=== PATIENT | female | born 1965 | race Caucasian/White ===

== ENCOUNTER → 2016-10-29 | Outpatient (CLI) | payer OTHER ==
[~2016-10-29] MED LIST: AMT25 PO; ANAG0.5C6 PO; ASPEC81 PO; FERR-24 PO; IBUP600T44 PO; OXYC-57 PO; SUMA6KIT SC
--- NOTE | 2016-10-29 16:07 | MAMMOGRAPHY REPORT ---
BILATERAL DIGITAL SCREENING MAMMOGRAM TOMOSYNTHESIS WITH CAD: 10/29/2016 CLINICAL HISTORY: Routine screening. Patient has no complaints. TECHNIQUE: Breast tomosynthesis in addition to standard 2D mammography was performed. Current study was also evaluated with a Computer Aided Detection (CAD) system. COMPARISON: Comparison is made to exams dated: 10/24/2015 mammogram, 10/18/2014 mammogram, 10/12/2013 m ammogram, 06/30/2012 mammogram, 06/18/2011 mammogram, and 06/12/2010 mammogram - [facility] nter. BREAST COMPOSITION: There are scattered areas of fibroglandular density in both breasts. FINDINGS: The parenchymal pattern is unchanged. No developing mass, architectural distortion or clus ter of suspicious microcalcifications is seen in either breast. IMPRESSION: ACR BI-RADS CATEGORY 2: BENIGN There is no mammographic evidence of malignancy. A 1 year screening mammogram is recommended. The pa tient will receive written notification of the results. Approximately 10% of breast cancers are not detected with mammography. A negative mammographic report should not delay biopsy if a clinically suggestive mass is present. Junie Cisse M.D. ay/:10/29/2016 15:35:58 [employer]: Rosemary COOLEY(Humberto)(Evita)(BD), [facility] letter sent: Normal 1/2 BI-RADS Code: ACR BI-RADS Category 2: Benign
== END | disposition home or self-care (01) ==
LOC: C.MAMM 08:52
PROVIDERS: ATTEND Obstetrics & Gynecology
DX: Z12.31 Encounter for screening mammogram for malignant neoplasm of breast (principal)

== ENCOUNTER 2022-06-03 09:28 | Inpatient (IN) ==
[2022-06-03] MEDS ORDERED: CLINDAMYCIN/D5W 900 MG/50 ML BAG IV ONE (09:56)
[2022-06-03] MEDS ORDERED: SODIUM CHLORIDE 0.9% 1000ML 1,000 ML IV SCH (10:00)
[2022-06-03] MEDS ORDERED: MoRPHine SULFATE 4 MG/ML 1 ML CARP\\VIAL IV STA (10:03)
[2022-06-03] MEDS ORDERED: ONDANSETRON INJ 2 MG/ML 2 ML VIAL IV STA ×2 (10:03→19:45)
--- NOTE | 2022-06-03 10:06 | Emergency Department Note ---
Impression & Plan Cellulitis of face, Facial swelling, Jaw pain ED Provider Note NAME: NUBIA STARK AGE: 56 SEX: F : 1965 ARRIVES VIA: Walk-In INFORMANT: [Patient] ED PROVIDER(S): [Rito Hawthorne MD] CHIEF COMPLAINT: Facial pain and swelling HISTORY OF PRESENT ILLNESS: The patient is a 56-year-old female who has had around 2 days of left lower jaw pain and facial swelling. She has taken 3 doses so far of amoxicillin prescribed by her doctors office. She states that the pain and swelling has increased. She has had some low-grade fevers. She still can swallow and has not noticed any shortness of breath. There has been no vomiting or diarrhea. No recent respiratory complaints. She has a history of some issues with her teeth but has never had anything like this happen before. She has a bridge on the left side. PMHx/PSHx: See Below SOCIAL HISTORY: See Below. PHYSICAL EXAM: GENERAL: Patient is in no acute distress. HEENT: The patient has significant left lower jaw erythema and swelling. She is quite tender in this area. No real trismus. There is erythema around the left lower first bicuspid. No obvious drainable abscess. No swelling to the floor the mouth. No throat erythema or exudate. No uvular edema. NECK: No stridor, no adenopathy, no meningismus, trachea is midline. LUNGS: Clear to auscultation bilaterally, no wheeze, no rhonchi, breath sounds equal. HEART: Without murmurs gallops or rubs, regular rate and rhythm. ABDOMEN: Soft, nontender, bowel sounds positive, no peritonitis. EXTREMITIES: No cyanosis or edema, full range of motion of all the joints without pain or difficulty, no signs for acute trauma. NEUROLOGIC: Oriented x 3, no acute motor or sensory deficits, no focal weakness. SKIN: No rash, no jaundice, no diaphoresis. DIFFERENTIAL DIAGNOSIS: Facial cellulitis, dental abscess, airway compromise, lower jaw swelling, uvular edema, pharyngitis, failed outpatient treatment, among others. EMERGENCY DEPARTMENT COURSE/PROCEDURES: Prior/Outside records reviewed: None. MEDICAL DECISION MAKING: There is no leukocytosis or concerning anemia. There is a normal platelet count. INR is 2.3, consistent with her Coumadin use. No renal failure or significant electrolyte abnormality. There were a few subtle liver enzyme elevations. COVID test returned negative. Lactic acid level was not elevated making severe sepsis less likely. Soft tissue neck CT shows a facial cellulitis, no large abscess described. On exam, there is no airway compromise. No swelling to the floor of the mouth. She had a significant amount of left facial cellulitis and swelling clinically. The patient received IV morphine for pain, IV Zofran for nausea. She received IV saline, 1 L. She was given IV clindamycin. I did speak with Dr. Hernández of facial/oral surgery. Hospitalization on the hospitalist service was recommended. The patient can be seen by Dr. Hernández in consult. The INR will need correction before any type of operative intervention. The patient was more comfortable after being administered medications here in the ER, she is amenable to a hospitalization. I did speak with case management, the on-call hospitalist was consulted. DISPOSITION: Patient's presentation and findings warrant a hospital stay. Past Med/Surg History Medical History Deep vein thrombosis, lower left extremity Essential hypertension Essential thrombocythemia GERD (gastroesophageal reflux disease) Migraine Palpitations PVCs on Zio - improved with beta raman Panic attacks Polycythemia vera Recurrent major depression Subclavian artery thrombosis s/p surgical intervention Surgical History History of arthroscopy of left knee History of breast biopsy History of hernia repair History of hysterectomy Family History Son Lymphoma Social History Smoking Status: Never smoker Preferred Language: Sammarinese Feels Safe at Home: Yes Allergies Allergies Allergy/AdvReac Type Severity Reaction Status Date / Time Sulfa (Sulfonamide Allergy Intermediate rash Verified 11/23/10 08:42 Antibiotics) Home Meds Home Medications Medication Instructions Recorded Confirmed albuterol sulfate 90 mcg/actuation 2 puff inhalation Q6H PRN 06/03/22 06/03/22 aerosol inhaler Shortness Of Breath Or Wheezing amlodipine 2.5 mg tablet 2.5 mg PO QPM 06/03/22 06/03/22 amoxicillin 875 mg tablet 875 mg PO BID 06/03/22 06/03/22 aspirin 81 mg tablet,delayed 81 mg PO DAILY 06/03/22 06/03/22 release chlorhexidine gluconate 0.12 % 15 ml PO BID 06/03/22 06/03/22 mouthwash hydroxyurea 500 mg capsule 1,000 mg PO Q OTHER DAY 06/03/22 06/03/22 hydroxyurea 500 mg capsule 1,500 mg PO Q OTHER DAY 06/03/22 06/03/22 metoprolol succinate 25 mg 12.5 mg PO QPM 06/03/22 06/03/22 tablet,extended release 24 hr oxybutynin chloride 10 mg 10 mg PO QPM 06/03/22 06/03/22 tablet,extended release 24 hr pantoprazole 40 mg tablet,delayed 40 mg PO QPM 06/03/22 06/03/22 release sertraline 100 mg tablet 100 mg PO QPM 06/03/22 06/03/22 sertraline 50 mg tablet 50 mg PO QPM 06/03/22 06/03/22 sumatriptan succinate 100 mg tablet 100 mg PO UD PRN Migraine Headache 06/03/22 06/03/22 trazodone 50 mg tablet 25 mg PO HS 06/03/22 06/03/22 warfarin 5 mg tablet See Rx Instructions .Route .COMPLEX 06/03/22 06/03/22 Results & Data (ED) Vital Signs Vital Signs - 24 hr 06/03/22 09:40 06/03/22 10:45 06/03/22 11:49 Temperature 36.6 C Temperature Source Temporal Artery Scan Pulse Rate 101 H Pulse Rate [Finger] 84 83 Respiratory Rate 20 18 18 Respiratory Effort / Characteristics Non-Labored Spontaneous Non-Labored Spontaneous Non-Labored Spontaneous Respiratory Depth Normal Normal Normal Blood Pressure 134/90 Blood Pressure [Left Arm] 123/82 129/89 Blood Pressure Mean 104 Blood Pressure Mean [Left Arm] 95 102 Pulse Oximetry 97 94 97 Oxygen Delivery Method Room Air Room Air Room Air Sepsis New/Unexplained Change in Mental Status N/A Sepsis Action Taken by Nursing No Action Required 06/03/22 13:17 06/03/22 14:02 Temperature Temperature Source Pulse Rate Pulse Rate [Finger] 79 81 Respiratory Rate 18 20 Respiratory Effort / Characteristics Non-Labored Spontaneous Non-Labored Spontaneous Respiratory Depth Normal Normal Blood Pressure Blood Pressure [Left Arm] 123/88 114/77 Blood Pressure Mean Blood Pressure Mean [Left Arm] 99 89 Pulse Oximetry 96 95 Oxygen Delivery Method Room Air Room Air Sepsis New/Unexplained Change in Mental Status Sepsis Action Taken by Group Home Medications Current Medication List: was personally reviewed by me Laboratory Data Attestation: I reviewed the patient's lab results. 06/03/22 10:30 06/03/22 10:30 Lab Results 06/03/22 06/03/22 06/03/22 Range/Units 10:30 10:30 10:30 WBC 4.38 L (4.8-10.8) K/ul RBC 3.49 L (4.20-5.40) M/uL Hgb 13.0 (12.0-16.0) g/dl Hct 38.5 (37.0-47.0) % MCV 110.3 H (80.0-100.0) fL MCH 37.2 H (25.0-34.0) pg MCHC 33.8 (32.0-36.0) g/dL RDW Std Deviation 60.6 H (36.4-46.3) fL RDW Coeff of Monique 14.9 H (11.5-14.5) % Plt Count 295 (130-400) K/uL MPV 8.5 L (9.4-12.4) fL Immature Gran % (Auto) 0.7 % Neut % (Auto) 81.0 % Lymph % (Auto) 11.0 % Story % (Auto) 6.6 % Eos % (Auto) 0.2 % Baso % (Auto) 0.5 % Neut # (Auto) 3.55 (1.40-6.50) K/uL Lymph # (Auto) 0.48 L (1.2-3.4) K/uL Story # (Auto) 0.29 (0.11-0.59) K/uL Eos # (Auto) 0.01 (0-0.50) K/uL Baso # (Auto) 0.02 (0-0.2) K/uL Immature Gran # (Auto) 0.03 (0.01-0.20) K/uL Hypersegmented Neuts 1+ Polychromasia 1+ Macrocytosis Present Ovalocytes 1+ PT (9.0-12.0) Seconds INR (0.9-1.1) APTT (21.0-31.0) Seconds PTT Ratio Sodium 137 (136-145) mmol/L Potassium 3.9 (3.5-5.1) mmol/L Chloride 103 (98-107) mmol/L Carbon Dioxide 28 (21-32) mmol/L Anion Gap 6 (3-11) BUN 14 (6-23) mg/dl Creatinine 0.97 (0.6-1.2) mg/dl Est Cr Clr Drug Dosing 77.0 ml/min Est GFR ( Amer) 75.1 ml/min Est GFR (Non-Af Amer) 64.8 ml/min BUN/Creatinine Ratio 14.4 (10-20) Glucose 98 (70-99(Fasting)) mg/dl Lactate 1.3 (0.4-2.0) mmol/L Calcium 9.4 (8.5-10.1) mg/dl Total Bilirubin 1.4 H (0.2-1.0) mg/dl AST 27 (13-39) U/L ALT 29 (7-52) U/L Alkaline Phosphatase 131 H (34-104) U/L Total Protein 7.9 (6.0-8.3) gm/dl Albumin 4.8 (3.4-5.0) gm/dl Globulin 3.1 (2.5-4.0) gm/dl Albumin/Globulin Ratio 1.5 (0.9-2) SARS-CoV-2, RNA, NAAT (NEGATIVE) 06/03/22 06/03/22 Range/Units 10:30 10:30 WBC (4.8-10.8) K/ul RBC (4.20-5.40) M/uL Hgb (12.0-16.0) g/dl Hct (37.0-47.0) % MCV (80.0-100.0) fL MCH (25.0-34.0) pg MCHC (32.0-36.0) g/dL RDW Std Deviation (36.4-46.3) fL RDW Coeff of Monique (11.5-14.5) % Plt Count (130-400) K/uL MPV (9.4-12.4) fL Immature Gran % (Auto) % Neut % (Auto) % Lymph % (Auto) % Story % (Auto) % Eos % (Auto) % Baso % (Auto) % Neut # (Auto) (1.40-6.50) K/uL Lymph # (Auto) (1.2-3.4) K/uL Story # (Auto) (0.11-0.59) K/uL Eos # (Auto) (0-0.50) K/uL Baso # (Auto) (0-0.2) K/uL Immature Gran # (Auto) (0.01-0.20) K/uL Hypersegmented Neuts Polychromasia Macrocytosis Ovalocytes PT 23.3 H (9.0-12.0) Seconds INR 2.3 H (0.9-1.1) APTT 37.9 H (21.0-31.0) Seconds PTT Ratio 1.4 Sodium (136-145) mmol/L Potassium (3.5-5.1) mmol/L Chloride (98-107) mmol/L Carbon Dioxide (21-32) mmol/L Anion Gap (3-11) BUN (6-23) mg/dl Creatinine (0.6-1.2) mg/dl Est Cr Clr Drug Dosing ml/min Est GFR ( Amer) ml/min Est GFR (Non-Af Amer) ml/min BUN/Creatinine Ratio (10-20) Glucose (70-99(Fasting)) mg/dl Lactate (0.4-2.0) mmol/L Calcium (8.5-10.1) mg/dl Total Bilirubin (0.2-1.0) mg/dl AST (13-39) U/L ALT (7-52) U/L Alkaline Phosphatase (34-104) U/L Total Protein (6.0-8.3) gm/dl Albumin (3.4-5.0) gm/dl Globulin (2.5-4.0) gm/dl Albumin/Globulin Ratio (0.9-2) SARS-CoV-2, RNA, NAAT NEGATIVE (NEGATIVE) Administered Medications Discontinued Medications Sodium Chloride (Nss 1000ml) 1,000 mls @ 999 mls/hr IV .Q1H1M FABY Stop: 06/03/22 11:00 Last Infusion: 06/03/22 11:36 Dose: 0 mls/hr Documented By: Admin: 06/03/22 10:37 Dose: 999 mls/hr Documented By: YVETTE Clindamycin Phosphate (Cleocin/D5w) 900 mg in 50 mls @ 100 mls/hr IV NOW ONE Stop: 06/03/22 10:25 Last Infusion: 06/03/22 11:36 Dose: 0 mls/hr Documented By: Admin: 06/03/22 11:03 Dose: 100 mls/hr Documented By: YVETTE Ioversol (Optiray 350 100ml) 82 ml IV ONCE ONE Stop: 06/03/22 11:45 Last Admin: 06/03/22 11:34 Dose: 82 ml Documented By: ALEX Morphine Sulfate (Morphine Sulfate 4 Mg/Ml 1 Ml Carp\Vial) 4 mg IV NOW STA Stop: 06/03/22 10:04 Last Admin: 06/03/22 10:37 Dose: 4 mg Documented By: YVETTE Morphine Sulfate (Morphine Sulfate 10 Mg/Ml Carp/Vial) 6 mg IV NOW STA Stop: 06/03/22 13:02 Last Admin: 06/03/22 13:22 Dose: 6 mg Documented By: YVETTE Ondansetron HCl (Ondansetron Inj 2 Mg/Ml 2 Ml Vial) 4 mg IV NOW STA Stop: 06/03/22 10:04 Last Admin: 06/03/22 10:37 Dose: 4 mg Documented By: YVETTE Imaging Data Radiologist's Impression: Soft Tissue Neck CT 06/03/22 09:54 CT soft tissue neck w con CLINICAL HISTORY: poss facial abscess Technique: Axial CT images of the soft tissues of the neck were obtained following intravenous administration of 100 cc of Omnipaque 300. Automated dose lowering techniques and/or adjustment according to patient size were utilized for this exam. CT DOSE: 470.19 mGy.cm Comparison: None available at the time of this dictation. Findings: Soft tissue swelling and skin thickening are seen about the left ventricle and mandibular regions. No drainable fluid collection is seen. There is thickening of the platysma which is likely reactive. The oropharynx, hypopharynx, larynx, and trachea are patent. Subcentimeter left submandibular nodes measuring up to 7 mm in short axis are likely reactive. The parotid glands, submandibular glands, and thyroid gland are unremarkable. Imaged portions of the brain parenchyma are unremarkable. Prominent soft tissue thickening of the maxillary sinuses noted. Impression: Findings are compatible with cellulitis of the left mandibular and apical soft tissues with thickening of the platysma and reactive lymph nodes. No drainable fluid collection or osteomyelitis is seen. ACT 112: Negative or not required by law. Electronically signed by: Mckinley Vaughn M.D. 06/03/2022 12:00 PM Discharge Plan Visit Data Chief Complaint: Facial Injury/Pain Stated Complaint: FACIAL ABCESS ED Provider: Rito Hawthorne Discharge Problem: Cellulitis of face, Facial swelling, Jaw pain Patient Disposition: Admitted As Inpatient Condition: Fair Forms Stand Alone Forms: My [facility] Prescriptions Prescriptions: No Action hydroxyurea 500 mg capsule 1,500 mg PO Q OTHER DAY Rx Instructions: 1500 mg on Odd days hydroxyurea 500 mg capsule 1,000 mg PO Q OTHER DAY Rx Instructions: 1000 mg on even days trazodone 50 mg tablet 25 mg PO HS oxybutynin chloride 10 mg tablet extended release 24hr 10 mg PO QPM sumatriptan succinate 100 mg tablet 100 mg PO UD PRN (Reason: Migraine Headache) Rx Instructions: Take 1 tablet by mouth at onset, may repeat in 2 hours if needed sertraline 100 mg tablet 100 mg PO QPM Rx Instructions: with 50 mg tablet for a total of 150 mg daily amlodipine 2.5 mg tablet 2.5 mg PO QPM aspirin 81 mg Tablet,Delayed Release (Dr/Ec) 81 mg PO DAILY amoxicillin 875 mg Tablet 875 mg PO BID pantoprazole 40 mg tablet,delayed release (DR/EC) 40 mg PO QPM warfarin 5 mg tablet See Rx Instructions .ROUTE .COMPLEX Rx Instructions: As of 05/29 on 2.5 mg Mon/Sat, 5 mg all other days metoprolol succinate 25 mg tablet extended release 24 hr 12.5 mg PO QPM albuterol sulfate 90 mcg/actuation HFA aerosol inhaler 2 puff INHALATION Q6H PRN (Reason: Shortness Of Breath Or Wheezing) sertraline 50 mg tablet 50 mg PO QPM Rx Instructions: with 100 mg tablet for a total of 150 mg daily chlorhexidine gluconate 0.12 % mouthwash 15 ml PO BID Rx Instructions: 15 ml swish and spit BID Referrals Referrals: Otoniel Gonzalez MD [Outside Practitioners] -
[2022-06-03 11:06] LABS: Basophils # (auto) 0.02 K/uL (0-0.2); Basophils % (auto) 0.5 %; Eosinophils # (auto) 0.01 K/uL (0-0.50); Eosinophils % (auto) 0.2 %; Hematocrit (blood only) 38.5 % (37.0-47.0); Immature Granulocytes # (auto) 0.03 K/uL (0.01-0.20); Immature Granulocytes % (auto) 0.7 %; Lymphocytes # (auto) 0.48 K/uL (1.2-3.4); Mean Corpuscular Hemoglobin 37.2 pg (25.0-34.0); Mean Corpuscular Hgb Conc 33.8 g/dL (32.0-36.0); Mean Corpuscular Volume 110.3 fL (80.0-100.0); Mean Platelet Volume 8.5 fL (9.4-12.4); Monocytes # (auto) 0.29 K/uL (0.11-0.59); Monocytes % (auto) 6.6 %; Neutrophils # (auto) 3.55 K/uL (1.40-6.50); Platelet Count 295 K/uL (130-400); RDW Coefficient of Variation 14.9 % (11.5-14.5); RDW Standard Deviation 60.6 fL (36.4-46.3); Red Blood Count 3.49 M/uL (4.20-5.40); White Blood Count 4.38 K/ul (4.8-10.8)
[2022-06-03 11:14] LABS: Albumin Globulin Ratio 1.5 (0.9-2); Albumin Level 4.8 gm/dl (3.4-5.0); BUN Creatinine Ratio 14.4 (10-20); Bilirubin,Total 1.4 mg/dl (0.2-1.0); Calcium 9.4 mg/dl (8.5-10.1); Est GFR (African American) 75.1 ml/min; Est GFR (Non-African American) 64.8 ml/min; Globulin 3.1 gm/dl (2.5-4.0); Potassium 3.9 mmol/L (3.5-5.1); Total Protein 7.9 gm/dl (6.0-8.3)
[2022-06-03 11:25] LABS: INR 2.3 (0.9-1.1); Partial Thromboplastin Ratio 1.4; Partial Thromboplastin Time 37.9 Seconds (21.0-31.0); Prothrombin Time 23.3 Seconds (9.0-12.0)
[2022-06-03 11:34] LABS: Hypersegmented Neutrophils 1+; Macrocytosis Present; Ovalocytes 1+; Polychromasia 1+
[2022-06-03] MEDS ORDERED: OPTIRAY 350 100ml IV ONE (11:44)
--- NOTE | 2022-06-03 12:01 | CT Scan Report ---
CT soft tissue neck w con CLINICAL HISTORY: poss facial abscess Technique: Axial CT images of the soft tissues of the neck were obtained following intravenous admini stration of 100 cc of Omnipaque 300. Automated dose lowering techniques and/or adjustment according t o patient size were utilized for this exam. CT DOSE: 470.19 mGy.cm Comparison: None available at the time of this dictation. Findings: Soft tissue swelling and skin thickening are seen about the left ventricle and mandibular regions. No drainable fluid collection is seen. There is thickening of the platysma which is likely reactive. Th e oropharynx, hypopharynx, larynx, and trachea are patent. Subcentimeter left submandibular nodes ivonne suring up to 7 mm in short axis are likely reactive. The parotid glands, submandibular glands, and th yroid gland are unremarkable. Imaged portions of the brain parenchyma are unremarkable. Prominent soft tissue thickening of the ma xillary sinuses noted. Impression: Findings are compatible with cellulitis of the left mandibular and apical soft tissues with thickenin g of the platysma and reactive lymph nodes. No drainable fluid collection or osteomyelitis is seen. ACT 112: Negative or not required by law. Electronically signed by: Mckinley Vaughn M.D. 06/03/2022 12:00 PM
[2022-06-03] MEDS ORDERED: MoRPHine SULFATE 4 MG/ML 1 ML CARP\\VIAL IV PRN (13:01)
[2022-06-03] MEDS ORDERED: MoRPHine SULFATE 10 MG/ML CARP/VIAL IV STA (13:01)
--- NOTE | 2022-06-03 13:35 | History & Physical Report ---
Date of Service June 03, 2022 Assessment & Plan (1) Cellulitis of face: Plan: 56 y/o female with a PMH of polycythemia vera, recent DVT in Feb, now on warfarin, HTN, adjustment disorder, and GERD who presented to the ED with rapid worsening of left facial swelling and pain that started yesterday morning. Note from urgent care visit yesterday reviewed - pt started on amoxicillin 875 mg BID and chlorhexidine rinses. However, pt notes continued worsening even on antibiotics. She has not seen a dentist in over three years. Clinical picture seems most consistent with a left facial cellulitis due to underlying dental infection. - Admit to med surg for further management - Broad-spectrum IV antibiotics - will change to Zosyn - Pain control - ordered morphine - NPO for now, IVF hydration - Consult oral maxillofacial surgery (ED provider spoke with Dr. Hernández already) - Holding warfarin for now until determine if pt needs surgical intervention - Labs in AM - CBC, BMP, INR (2) Facial swelling: Plan: See plan for #1 (3) Polycythemia vera: Plan: - Continue hydroxyurea per current outpatient dosing (4) Deep vein thrombosis, lower left extremity: Plan: On warfarin - per outpatient heme notes, will likely be lifelong AC - Monitor INR daily - Holding AC until evaluated by Dr. Hernández (5) Essential hypertension: Plan: Currently normotensive - Continue amlodipine (6) Adjustment disorder with mixed anxiety and depressed mood: Plan: - Continue sertraline, trazodone (7) GERD (gastroesophageal reflux disease): Plan: - Continue pantoprazole - currently well-controlled Plan Pt seen and reviewed with attending physician, Dr. Amador. Plan of care discussed and as outlined above. Code Status: Full Code DVT Prophylaxis: INR currently therapeutic though warfarin on hold, will re- evaluate as needed, encourage ambulation Arnaud Levine PA-C History of Present Illness Chief Complaint: Facial swelling and pain Primary Care Provider: Eduarda Kramer, DO This is a 56 y/o female with a PMH of polycythemia vera, recent LLE DVT, recent COVID infection, anxiety, depression, HTN, GERD, insomnia, and prior subclavian arterial embolism s/p embolectomy in 2008 who presented to the ED today with worsening facial swelling and pain. Pt reports two days ago being in her usual state of health. Yesterday, she woke up with a "golf ball sized" swelling in her left lower face/jaw with associated pain. Took Tylenol without relief. Seen by urgent care via telemedicine yesterday and diagnosed with dental infection, started on Amoxicillin 875 mg BID. She has taken three doses of the Amoxicillin but feels like symptoms are worsening, not improving. Notes increased pain and swelling with both now extending into her left neck and under her chin. Only partial relief with morphine. Has been using an ice pack which helps somewhat. Associated nausea but no vomiting or diarrhea. Area over the most swollen area feels numb and tingling. Low-grade fever yesterday (99.8F) with associated chills. Warm salt water and the chlorhexidine rinses prescribed yesterday also seem to provide some transient relief. She notes that she has not seen a dentist since before the pandemic. About three years ago broke a left lower molar/bridge but has not followed up. Denies any dental pain. No similar symptoms previously. She is currently on warfarin due to recent LLE DVT in Feb - with anticoagulation clinic. About 2-3 weeks ago, she had COVID and took a course of Paxlovid - feels like these symptoms have essentially resolved. Allergies Allergy/AdvReac Type Severity Reaction Status Date / Time Sulfa (Sulfonamide Allergy Intermediate rash Verified 11/23/10 08:42 Antibiotics) Home Medications Medication Instructions Recorded Confirmed Type albuterol sulfate 90 mcg/actuation 2 puff inhalation Q6H PRN 06/03/22 06/03/22 History aerosol inhaler Shortness Of Breath Or Wheezing amlodipine 2.5 mg tablet 2.5 mg PO QPM 06/03/22 06/03/22 History amoxicillin 875 mg tablet 875 mg PO BID 06/03/22 06/03/22 History aspirin 81 mg tablet,delayed 81 mg PO DAILY 06/03/22 06/03/22 History release chlorhexidine gluconate 0.12 % 15 ml PO BID 06/03/22 06/03/22 History mouthwash hydroxyurea 500 mg capsule 1,000 mg PO Q OTHER DAY 06/03/22 06/03/22 History hydroxyurea 500 mg capsule 1,500 mg PO Q OTHER DAY 06/03/22 06/03/22 History metoprolol succinate 25 mg 12.5 mg PO QPM 06/03/22 06/03/22 History tablet,extended release 24 hr oxybutynin chloride 10 mg 10 mg PO QPM 06/03/22 06/03/22 History tablet,extended release 24 hr pantoprazole 40 mg tablet,delayed 40 mg PO QPM 06/03/22 06/03/22 History release sertraline 100 mg tablet 100 mg PO QPM 06/03/22 06/03/22 History sertraline 50 mg tablet 50 mg PO QPM 06/03/22 06/03/22 History sumatriptan succinate 100 mg tablet 100 mg PO UD PRN Migraine Headache 06/03/22 06/03/22 History trazodone 50 mg tablet 25 mg PO HS 06/03/22 06/03/22 History warfarin 5 mg tablet See Rx Instructions .Route .COMPLEX 06/03/22 06/03/22 History Past Med/Surg History Medical History Deep vein thrombosis, lower left extremity Essential hypertension Essential thrombocythemia GERD (gastroesophageal reflux disease) Migraine Palpitations PVCs on Zio - improved with beta raman Panic attacks Polycythemia vera Recurrent major depression Subclavian artery thrombosis s/p surgical intervention Surgical History History of arthroscopy of left knee History of breast biopsy History of hernia repair History of hysterectomy Family History Son Lymphoma Social History Smoking Status: Never smoker Preferred Language: Czech Feels Safe at Home: Yes Review of Systems Review of Systems: All systems reviewed & are unremarkable except as noted in HPI & below Constitutional: + fever, + chills and + fatigue Eyes: no diplopia and no worsening vision Ear, Nose, Mouth, Throat: + dysphagia (mild); no sore throat and no pain with swallowing Respiratory: no cough and no dyspnea Cardiovascular: no chest pain, no palpitations and no syncope Gastrointestinal: + nausea; no abdominal pain, no vomiting and no diarrhea/loose stools Genitourinary: no dysuria and no hematuria Musculoskeletal: + neck pain; no back pain Integumentary: no yellowing of the skin Neurologic: + tingling, + numbness and + headache(s) Psychiatric: + anxiety Physical Exam Constitutional: well developed and well nourished; no acute distress Eyes: + anicteric sclerae ENMT: marked left lower mandibular erythema and edema with associated tenderness that extends under chin and the left neck and supraclavicular area Limited ability to open mouth due to pain but left lower gingival erythema and edema, scant drainage Neck: trachea midline shotty left submandibular LN - tender Respiratory: no respiratory distress and no labored breathing Auscultation: lungs clear to auscultation bilaterally; no rales, no rhonchi and no wheezes Cardiovascular: Rate/Rhythm: regular rate and regular rhythm Vessels: dorsalis pedis pulses present and radial pulses present Extremities: no pedal edema Gastrointestinal (Abdomen): Inspection/Auscultation: normal bowel sounds; abdomen not distended Percussion/Palpation: abdomen soft; abdomen nontender Musculoskeletal: Head/Neck/Chest: normocephalic and head atraumatic Skin: no jaundice Neurologic: moves all extremities; no focal motor deficits and not confused Psychiatric: A+Ox3, euthymic affect Results & Data Results & Data ([facility]) Vital Signs (Past 12 Hours) Vital Signs Temp Pulse Pulse Resp BP BP Pulse Ox 06/03/22 13:17 79 18 123/88 96 06/03/22 11:49 83 18 129/89 97 06/03/22 10:45 84 18 123/82 94 06/03/22 09:40 36.6 C 101 H 20 134/90 97 O2 Del Method 06/03/22 13:17 Room Air 06/03/22 11:49 Room Air 06/03/22 10:45 Room Air 06/03/22 09:40 Room Air Laboratory Results Laboratory Results - last 24 hr 06/03/22 06/03/22 06/03/22 10:30 10:30 10:30 WBC 4.38 L RBC 3.49 L Hgb 13.0 Hct 38.5 MCV 110.3 H MCH 37.2 H MCHC 33.8 RDW Std Deviation 60.6 H RDW Coeff of Monique 14.9 H Plt Count 295 MPV 8.5 L Immature Gran % (Auto) 0.7 Neut % (Auto) 81.0 Lymph % (Auto) 11.0 Thomas % (Auto) 6.6 Eos % (Auto) 0.2 Baso % (Auto) 0.5 Neut # (Auto) 3.55 Lymph # (Auto) 0.48 L Thomas # (Auto) 0.29 Eos # (Auto) 0.01 Baso # (Auto) 0.02 Immature Gran # (Auto) 0.03 Hypersegmented Neuts 1+ Polychromasia 1+ Macrocytosis Present Ovalocytes 1+ PT INR APTT PTT Ratio Sodium 137 Potassium 3.9 Chloride 103 Carbon Dioxide 28 Anion Gap 6 BUN 14 Creatinine 0.97 Est Cr Clr Drug Dosing 77.0 Est GFR ( Amer) 75.1 Est GFR (Non-Af Amer) 64.8 BUN/Creatinine Ratio 14.4 Glucose 98 Lactate 1.3 Calcium 9.4 Total Bilirubin 1.4 H AST 27 ALT 29 Alkaline Phosphatase 131 H Total Protein 7.9 Albumin 4.8 Globulin 3.1 Albumin/Globulin Ratio 1.5 SARS-CoV-2, RNA, NAAT 06/03/22 06/03/22 10:30 10:30 WBC RBC Hgb Hct MCV MCH MCHC RDW Std Deviation RDW Coeff of Monique Plt Count MPV Immature Gran % (Auto) Neut % (Auto) Lymph % (Auto) Thomas % (Auto) Eos % (Auto) Baso % (Auto) Neut # (Auto) Lymph # (Auto) Thomas # (Auto) Eos # (Auto) Baso # (Auto) Immature Gran # (Auto) Hypersegmented Neuts Polychromasia Macrocytosis Ovalocytes PT 23.3 H INR 2.3 H APTT 37.9 H PTT Ratio 1.4 Sodium Potassium Chloride Carbon Dioxide Anion Gap BUN Creatinine Est Cr Clr Drug Dosing Est GFR ( Amer) Est GFR (Non-Af Amer) BUN/Creatinine Ratio Glucose Lactate Calcium Total Bilirubin AST ALT Alkaline Phosphatase Total Protein Albumin Globulin Albumin/Globulin Ratio SARS-CoV-2, RNA, NAAT NEGATIVE Diagnostic Findings CT Neck Soft Tissue 06/03/22 - Impression: Findings are compatible with cellulitis of the left mandibular and apical soft tissues with thickening of the platysma and reactive lymph nodes. No drainable fluid collection or osteomyelitis is seen. Medications Administered Discontinued Medications Sodium Chloride (Nss 1000ml) 1,000 mls @ 999 mls/hr IV .Q1H1M FABY Stop: 06/03/22 11:00 Last Infusion: 06/03/22 11:36 Dose: 0 mls/hr Documented By: Admin: 06/03/22 10:37 Dose: 999 mls/hr Documented By: YVETTE Clindamycin Phosphate (Cleocin/D5w) 900 mg in 50 mls @ 100 mls/hr IV NOW ONE Stop: 06/03/22 10:25 Last Infusion: 06/03/22 11:36 Dose: 0 mls/hr Documented By: Admin: 06/03/22 11:03 Dose: 100 mls/hr Documented By: YVETTE Ioversol (Optiray 350 100ml) 82 ml IV ONCE ONE Stop: 06/03/22 11:45 Last Admin: 06/03/22 11:34 Dose: 82 ml Documented By: ALEX Morphine Sulfate (Morphine Sulfate 4 Mg/Ml 1 Ml Carp\\Vial) 4 mg IV NOW STA Stop: 06/03/22 10:04 Last Admin: 06/03/22 10:37 Dose: 4 mg Documented By: YVETTE Morphine Sulfate (Morphine Sulfate 10 Mg/Ml Carp/Vial) 6 mg IV NOW STA Stop: 06/03/22 13:02 Last Admin: 06/03/22 13:22 Dose: 6 mg Documented By: YVETTE Ondansetron HCl (Ondansetron Inj 2 Mg/Ml 2 Ml Vial) 4 mg IV NOW STA Stop: 06/03/22 10:04 Last Admin: 06/03/22 10:37 Dose: 4 mg Documented By: YVETTE Supervising Physician Co-Signing Physician Notes 56-year-old lady with PMH of polycythemia vera on hydroxyurea, DVT on warfarin, HTN, GERD, adjustment disorder presented to the ED 06/03 with left facial swelling and pain that she reports started abruptly 1 day ago morning [employer] associated with severe pain and mild fever at home. Patient reports taking Augmentin 1 day along with chlorhexidine rinses with no improvement and hence presented to the ED. She is being managed for the following: Cellulitis of the face: As noted on clinical exam and soft tissue of neck CT at presentation. Does not appear septic at presentation. We will continue with Zosyn, OMFS consult placed. Will hold warfarin, n.p.o. for now, continue with IV fluids and pain management. PT/INR in AM. Other chronic history including polycythemia vera and DVT/essential hypertension --resume home meds as able. Warfarin on hold. On examination: GENERAL: Alert and oriented x3. NAD, on RA. HEENT: No pallor, no icterus. Pupils equal, round and reactive to light. Oral mucosa moist. NECK: No JVD. Left submandibular LAD, Left cheek and submandibular swelling w/ erythema/tenderness. Erythematous and swollen oral mucosa noted. Yellow drainage x left buccal area - scant. Decreased mouth opening. HEART: S1 and S2 heard. Regular rate and rhythm. No murmur, no gallop. RESPIRATORY SYSTEM: Normal AP diameter. No accessory muscle use. No wheezing, no crackles. ABDOMEN: Soft, bowel sounds present, nontender, no distention. CENTRAL NERVOUS SYSTEM: No facial droop. Speech is clear. Obeys simple commands. Moves extremities. EXTREMITIES: No edema, no erythema seen. I have seen and examined the patient and have discussed the case with the provider above. I agree with the assessment and plan as stated.
[2022-06-03] MEDS ORDERED: PIPERACILLIN/TAZOBACTAM 4.5 GM in DEXTROSE 5% 100 ML IV STA (16:50)
[2022-06-03] MEDS: SODIUM CHLORIDE 0.9% 1000ML 1,000 ML IV SCH (20:08)
[2022-06-03] MEDS: HYDROXYUREA 500 MG CAP PO SCH (20:28)
[2022-06-03] MEDS: OXYBUTYNIN CHLORIDE XL 5 MG TABCR PO SCH (22:21)
[2022-06-03] MEDS: traZODone HCL 50 MG TAB PO SCH (22:22)
[2022-06-03] MEDS: PANTOprazole 40 MG TAB PO SCH (22:22)
[2022-06-03] MEDS: SERTRALINE HCL 100 MG TABLET PO SCH (22:22)
[2022-06-03] MEDS: SERTRALINE HCL 50 MG TABLET PO SCH (22:22)
[2022-06-03] MEDS: amLODIPine BESYLATE 5 MG TAB PO SCH (22:23)
[2022-06-03] MEDS: METOPROLOL SUCC 25MG EXT REL TAB PO SCH (22:23)
[2022-06-03] MEDS: PIPERACILLIN/TAZOBACTAM 4.5 GM in DEXTROSE 5% 100 ML IV SCH (22:43)
[2022-06-04] MEDS: MoRPHine SULFATE 4 MG/ML 1 ML CARP\\VIAL IV PRN ×4 (04:15→21:52)
[2022-06-04] MEDS: SODIUM CHLORIDE 0.9% 1000ML 1,000 ML IV SCH (04:15)
[2022-06-04] MEDS: PIPERACILLIN/TAZOBACTAM 4.5 GM in DEXTROSE 5% 100 ML IV SCH (06:20)
[2022-06-04 07:19] LABS: Basophils # (auto) 0.01 K/uL (0-0.2); Basophils % (auto) 0.3 %; Eosinophils # (auto) 0.02 K/uL (0-0.50); Eosinophils % (auto) 0.7 %; Hematocrit (blood only) 31.2 % (37.0-47.0); Hemoglobin 10.4 g/dl (12.0-16.0); Immature Granulocytes # (auto) 0.01 K/uL (0.01-0.20); Immature Granulocytes % (auto) 0.3 %; Lymphocytes # (auto) 0.42 K/uL (1.2-3.4); Lymphocytes % (auto) 14.7 %; Mean Corpuscular Hemoglobin 37.1 pg (25.0-34.0); Mean Corpuscular Hgb Conc 33.3 g/dL (32.0-36.0); Mean Corpuscular Volume 111.4 fL (80.0-100.0); Mean Platelet Volume 9.4 fL (9.4-12.4); Monocytes # (auto) 0.25 K/uL (0.11-0.59); Monocytes % (auto) 8.7 %; Neutrophils # (auto) 2.15 K/uL (1.40-6.50); Neutrophils % (auto) 75.3 %; Platelet Count 213 K/uL (130-400); RDW Coefficient of Variation 14.6 % (11.5-14.5); RDW Standard Deviation 60.3 fL (36.4-46.3); White Blood Count 2.86 K/ul (4.8-10.8)
[2022-06-04 07:32] LABS: BUN Creatinine Ratio 10.5 (10-20); Calcium 8.9 mg/dl (8.5-10.1); Creatinine Clr Calc Pharmacy 78.3 ml/min; Est GFR (African American) 77.1 ml/min; Est GFR (Non-African American) 66.5 ml/min; Potassium 4.2 mmol/L (3.5-5.1)
[2022-06-04 07:44] LABS: INR 2.4 (0.9-1.1); Prothrombin Time 24.5 Seconds (9.0-12.0)
[2022-06-04] MEDS ORDERED: VANCOMYCIN CONSULT ACTIVE PRN (09:00)
--- NOTE | 2022-06-04 09:09 | Electrocardiogram Report ---
Test Reason : Blood Pressure : / mmHG Vent. Rate : 076 BPM Atrial Rate : 076 BPM P-R Int : 140 ms QRS Dur : 070 ms QT Int : 392 ms P-R-T Axes : 066 063 037 degrees QTc Int : 441 ms Normal sinus rhythm Normal ECG When compared with ECG of 08-JUN-2009 13:00, No significant change was found Confirmed by Augustine Swenson ([id number]) on 06/04/2022 9:09:23 AM Referred By: REFERRED SELF Confirmed By:Augustine Swenson
[2022-06-04] MEDS ORDERED: VANCOMYCIN HCL 2,000 MG in SODIUM CHLORIDE 0.9% 500 ML IV ONE (09:30)
--- NOTE | 2022-06-04 12:53 | Hospitalist Progress Note ---
Date of Service June 04, 2022 Assessment & Plan (1) Cellulitis of face: Plan: 56 y/o female with a PMH of polycythemia vera, recent DVT in Feb, now on warfarin, HTN, adjustment disorder, and GERD who presented to the ED with rapid worsening of left facial swelling and pain that started yesterday morning. Note from urgent care visit yesterday reviewed - pt started on amoxicillin 875 mg BID and chlorhexidine rinses. However, pt notes continued worsening even on antibiotics. She has not seen a dentist in over three years. Clinical picture seems most consistent with a left facial cellulitis due to underlying dental infection. Admit to med surg for further management Patient initially started on Zosyn, empiric Vanco added this morning due to patient concern for worsening in erythema extending to base of neck MRSA screen was negative, vancomycin DC'd De-escalate antibiotic to IV Unasyn per Dr. Hernández Placed on diet today, n.p.o. after midnight for possible procedure tomorrow Per Dr. Hernández goal INR around 1.5, will continue to hold warfarin and no vitamin K per Dr. Hernández Pain control - ordered morphine Appreciate Dr. Hernández with oral maxillofacial surgery recommendations Repeat INR this evening and in a.m. Pt dx with DVT LLE 03/18, known hx of PCV and Jak2 mutation, previous hx of arterial embolism following upper ext surgery in 2008 (2) Facial swelling: Plan: See plan for #1 (3) Polycythemia vera: Plan: Continue hydroxyurea per current outpatient dosing Plt stable wbc and h/h decreased today, likely dilutional effect monitor daily cbc (4) Deep vein thrombosis, lower left extremity: Plan: On warfarin - per outpatient heme notes, will likely be lifelong AC continue to hold warfarin Per Dr. Hernández goal INR ~ 1.5 Dr. Hernández does not wish to utilize vitamin K recommend resuming warfarin/bridging agent as soon as hemostasis is achieved at the discretion of Dr. Hernández (5) Essential hypertension: Plan: Currently normotensive Continue amlodipine (6) Adjustment disorder with mixed anxiety and depressed mood: Plan: Continue sertraline, trazodone (7) GERD (gastroesophageal reflux disease): Plan: Continue pantoprazole - currently well-controlled Plan FULL CODE PCP: Li Kramer Dispo: med/surg, NPO for possible oral maxillo facial procedure tomorrow, warfarin on holding, INR repeat ordered A total of 40 minutes was spent with greater than 50% of that time personally viewing all current laboratory work and diagnostic imaging studies obtained in the ED. Additionally, I was able to view the patients past medication reconciliation and history with direct visualization in the patients chart. Included in the time above, a portion of that time was spent assessing the patient while discussing and collaborating with specialists, if necessary, and making medical decision making on treatment plan. All of the above was collaborated with Dr. Amador. Please see addendum for further details. Admission and Anticipated Discharge Date Admission Date: June 03, 2022 Supervising Physician Co-Signing Physician Notes 56-year-old lady with PMH of polycythemia vera on hydroxyurea, DVT on warfarin, HTN, GERD, adjustment disorder presented to the ED 06/03 with left facial swelling and pain that she reports started abruptly 1 day ago morning [employer] associated with severe pain and mild fever at home. Patient reports taking Augmentin 1 day along with chlorhexidine rinses with no improvement and hence presented to the E D 06/03. She is being managed for the following: Cellulitis of the face: As noted on clinical exam and soft tissue of neck CT at presentation. Does not appear septic at presentation. OMFS consult placed, appreciate recs. Pain Mx, zosyn to unasyn; mrsa neg so dc vanc. NPO midnight for OMFS eval in AM. PT/INR in AM. Other chronic history including polycythemia vera and DVT/essential hypertension --resume home meds as able. Warfarin on hold. On examination: GENERAL: Alert and oriented x3. NAD, on RA. HEENT: No pallor, no icterus. Pupils equal, round and reactive to light. Oral mucosa moist. NECK: No JVD. Left submandibular LAD, Left cheek and submandibular swelling w/ erythema/tenderness. Erythematous and swollen oral mucosa noted. Yellow drainage x left buccal area - scant. Decreased mouth opening. All these findings in improving trend specifically swelling and erythema over sumandibular region has improved nicely. HEART: S1 and S2 heard. Regular rate and rhythm. No murmur, no gallop. RESPIRATORY SYSTEM: Normal AP diameter. No accessory muscle use. No wheezing, no crackles. ABDOMEN: Soft, bowel sounds present, nontender, no distention. CENTRAL NERVOUS SYSTEM: No facial droop. Speech is clear. Obeys simple commands. Moves extremities. EXTREMITIES: No edema, no erythema seen. I have seen and examined the patient and have discussed the case with the provider above. I agree with the assessment and plan as stated. Subjective This is a 56-year-old female being followed for left-sided facial cellulitis. Seen and evaluated in room 302. Review of Systems Review of Systems: All systems reviewed & are unremarkable except as noted in HPI & below Physical Exam Physical Exam: Gen: WD/WN, NAD, A&O x3 HEENT: Normocephalic, atraumatic, conjunctivae moist, sclerae anicteric, mucous membranes moist. + Left-sided facial edema, erythema extending to base of neck, pain to palpation, left-sided oral mucosal bulla noted Lung: Clear to Auscultation bilaterally, no wheezes/rales/rhonchi Heart: Regular rate, regular rhythm, no murmurs, rubs, or gallops Abdomen: Soft, NT, ND +BS x 4 Extremities: No edema Skin: Warm, no rash, negative turgor. Results & Data Results & Data ([facility]) Vital Signs (Past 12 Hours) Vital Signs Temp Pulse Resp BP Pulse Ox O2 Del Method 06/04/22 07:05 37.2 C 77 18 134/79 94 Room Air 06/04/22 04:16 74 15 120/78 94 Room Air Laboratory Results Short CBC 06/04/22 Range/Units 06:56 WBC 2.86 L (4.8-10.8) K/ul Hgb 10.4 L (12.0-16.0) g/dl Hct 31.2 L (37.0-47.0) % Plt Count 213 (130-400) K/uL BMP 06/04/22 06:56 Sodium 138 Potassium 4.2 Chloride 106 Carbon Dioxide 27 BUN 10 Creatinine 0.95 Glucose 89 Calcium 8.9 Diagnostic Findings Soft Tissue Neck CT 06/03/22 09:54 CT soft tissue neck w con CLINICAL HISTORY: poss facial abscess Technique: Axial CT images of the soft tissues of the neck were obtained following intravenous administration of 100 cc of Omnipaque 300. Automated dose lowering techniques and/or adjustment according to patient size were utilized for this exam. CT DOSE: 470.19 mGy.cm Comparison: None available at the time of this dictation. Findings: Soft tissue swelling and skin thickening are seen about the left ventricle and mandibular regions. No drainable fluid collection is seen. There is thickening of the platysma which is likely reactive. The oropharynx, hypopharynx, larynx, and trachea are patent. Subcentimeter left submandibular nodes measuring up to 7 mm in short axis are likely reactive. The parotid glands, submandibular glands, and thyroid gland are unremarkable. Imaged portions of the brain parenchyma are unremarkable. Prominent soft tissue thickening of the maxillary sinuses noted. Impression: Findings are compatible with cellulitis of the left mandibular and apical soft tissues with thickening of the platysma and reactive lymph nodes. No drainable fluid collection or osteomyelitis is seen. ACT 112: Negative or not required by law. Electronically signed by: Mckinley Vaughn M.D. 06/03/2022 12:00 PM
[2022-06-04] MEDS: AMPICILLIN/SULBACTAM SOD 3,000 MG in 0.9 % SODIUM CHLORIDE 100 ML IV SCH ×2 (14:14→19:59)
[2022-06-04] MEDS: HYDROXYUREA 500 MG CAP PO SCH (14:21)
--- NOTE | 2022-06-04 17:47 | Anesthesiology Consultation ---
Date of Service June 04, 2022 Assessment & Plan Chart Review Chart Review: Acceptable Risk for Surgery and Patient NOT seen in Pre Admission Testing Consults Requested none ASA ASA3 Proposed Anesthesia Anesthesia Type: General History Surgery Operation Date: 06/05/22 07:15 Proposed Procedures p Left Submandibular Incision and Drainage - Denys Hernández DMD s Extraction of#18 and #20 - Denys Hernández DMD Height/Weight Height: 5 ft 8 in Weight: 94 kg Allergies Allergy/AdvReac Type Severity Reaction Status Date / Time Sulfa (Sulfonamide Allergy Intermediate rash Verified 11/23/10 08:42 Antibiotics) Medications Home Medications Medication Instructions Recorded Confirmed Last Taken albuterol sulfate 90 mcg/actuation 2 puff inhalation Q6H PRN 06/03/22 06/03/22 Unknown aerosol inhaler Shortness Of Breath Or Wheezing amlodipine 2.5 mg tablet 2.5 mg PO QPM 06/03/22 06/03/22 06/02/22 amoxicillin 875 mg tablet 875 mg PO BID 06/03/22 06/03/22 06/03/22 aspirin 81 mg tablet,delayed 81 mg PO DAILY 06/03/22 06/03/22 06/02/22 release chlorhexidine gluconate 0.12 % 15 ml PO BID 06/03/22 06/03/22 06/03/22 mouthwash hydroxyurea 500 mg capsule 1,000 mg PO Q OTHER DAY 06/03/22 06/03/22 06/01/22 hydroxyurea 500 mg capsule 1,500 mg PO Q OTHER DAY 06/03/22 06/03/22 06/02/22 metoprolol succinate 25 mg 12.5 mg PO QPM 06/03/22 06/03/22 06/02/22 tablet,extended release 24 hr oxybutynin chloride 10 mg 10 mg PO QPM 06/03/22 06/03/22 06/02/22 tablet,extended release 24 hr pantoprazole 40 mg tablet,delayed 40 mg PO QPM 06/03/22 06/03/22 06/02/22 release sertraline 100 mg tablet 100 mg PO QPM 06/03/22 06/03/22 06/02/22 sertraline 50 mg tablet 50 mg PO QPM 06/03/22 06/03/22 06/02/22 sumatriptan succinate 100 mg tablet 100 mg PO UD PRN Migraine Headache 06/03/22 06/03/22 Unknown trazodone 50 mg tablet 25 mg PO HS 06/03/22 06/03/22 06/02/22 warfarin 5 mg tablet See Rx Instructions .Route .COMPLEX 06/03/22 06/03/22 06/02/22 Active Medications Generic Name Dose Route Start Last Admin Trade Name Freflorencia PRN Reason Stop Dose Admin Amlodipine Besylate 2.5 mg 06/03/22 21:00 06/03/22 22:23 Amlodipine Besylate 5 Mg Tab PO 07/03/22 20:59 2.5 mg QPM FABY Administration Hydroxyurea 1,500 mg 06/04/22 15:00 06/04/22 14:21 Hydroxyurea 500 Mg Cap PO 07/04/22 14:59 1,500 mg Q48H FABY Administration Hydroxyurea 1,000 mg 06/03/22 19:05 06/03/22 20:28 Hydroxyurea 500 Mg Cap PO 07/03/22 19:04 1,000 mg Q48H FABY Administration Ampicillin Sodium/Sulbactam 108 mls @ 200 mls/hr 06/04/22 14:00 06/04/22 15:00 Sodium 3,000 mg/ Sodium IV 06/14/22 13:59 Infused Chloride Q6H FABY Infusion Protocol Metoprolol Succinate 12.5 mg 06/03/22 21:00 06/03/22 22:23 Metoprolol Succ 25mg Ext Rel Tab PO 07/03/22 20:59 12.5 mg QPM FABY Administration Morphine Sulfate 3 mg 06/03/22 19:05 06/04/22 16:06 Morphine Sulfate 4 Mg/Ml 1 Ml Carp\Vial IV 06/17/22 19:04 3 mg Q6H PRN Administration Pain Oxybutynin Chloride 10 mg 06/03/22 21:00 06/03/22 22:21 Oxybutynin Chloride Xl 5 Mg Tabcr PO 07/03/22 20:59 10 mg QPM FABY Administration Pantoprazole Sodium 40 mg 06/03/22 21:00 06/03/22 22:22 Pantoprazole 40 Mg Tab PO 07/03/22 20:59 40 mg QPM FABY Administration Sertraline HCl 100 mg 06/03/22 21:00 06/03/22 22:22 Sertraline Hcl 100 Mg Tablet PO 07/03/22 20:59 100 mg QPM FAYB Administration Sertraline HCl 50 mg 06/03/22 21:00 06/03/22 22:22 Sertraline Hcl 50 Mg Tablet PO 07/03/22 20:59 50 mg QPM FABY Administration Trazodone HCl 25 mg 06/03/22 21:00 06/03/22 22:22 Trazodone Hcl 50 Mg Tab PO 07/03/22 20:59 25 mg HS FABY Administration Past Medical History Medical History Deep vein thrombosis, lower left extremity Essential hypertension Essential thrombocythemia GERD (gastroesophageal reflux disease) Migraine Palpitations PVCs on Zio - improved with beta raman Panic attacks Polycythemia vera Recurrent major depression Subclavian artery thrombosis s/p surgical intervention Exercise / Class Metabolic Activity II 4-5 Yardwork/Stairs/Walk up hill Past Family History Family History Son Lymphoma Past Surgical History Surgical History History of arthroscopy of left knee History of breast biopsy History of hernia repair History of hysterectomy Past Anesthesia History No Hx of Anesthesia Complications and No Family Hx of Anesthesia Complications History of PONV No Hx of PONV and No Hx of Motion Sickness Social History Smoking Status: Never smoker Do You Dip or Chew Tobacco: No Hx Alcohol Use: Yes Alcohol type: beer alcohol intake frequency: a few times a week Hx Substance Use: No Physical Exam Vital Signs Last Vital Signs Temp 37.0 C 06/04/22 14:46 Pulse 73 06/04/22 14:46 Resp 18 06/04/22 14:46 BP 99/65 L 06/04/22 14:46 Pulse Ox 97 06/04/22 14:46 O2 Del Method Room Air 06/04/22 14:46 Testing Laboratory Results 06/04/22 06:56 06/04/22 06:56 PT 24.5 Seconds (9.0-12.0) H 06/04/22 06:56 INR 2.4 (0.9-1.1) H 06/04/22 06:56 APTT 37.9 Seconds (21.0-31.0) H 06/03/22 10:30 06/03/22 10:52 Aerobic Blood Culture - Preliminary Blood No growth in Aerobic bottle after 24 hours. 06/03/22 10:30 Aerobic Blood Culture - Preliminary Blood No growth in Aerobic bottle after 24 hours. Anaerobic Blood Culture - Preliminary No growth in Anaerobic bottle after 24 hours. Electrocardiogram Date: 06/03/22 Findings: + NSR @ (@ 76)
[2022-06-04] MEDS ORDERED: VANCOMYCIN HCL 1,000 MG in SODIUM CHLORIDE 0.9% 250 ML IV SCH (18:00)
[2022-06-04 19:50] LABS: Prothrombin Time 20.9 Seconds (9.0-12.0)
[2022-06-04] MEDS: amLODIPine BESYLATE 5 MG TAB PO SCH (20:03)
[2022-06-04] MEDS: traZODone HCL 50 MG TAB PO SCH (20:04)
[2022-06-04] MEDS: SERTRALINE HCL 100 MG TABLET PO SCH (20:04)
[2022-06-04] MEDS: PANTOprazole 40 MG TAB PO SCH (20:04)
[2022-06-04] MEDS: METOPROLOL SUCC 25MG EXT REL TAB PO SCH (20:04)
[2022-06-04] MEDS: SERTRALINE HCL 50 MG TABLET PO SCH (20:04)
[2022-06-04] MEDS: OXYBUTYNIN CHLORIDE XL 5 MG TABCR PO SCH (20:04)
[2022-06-05] MEDS: AMPICILLIN/SULBACTAM SOD 3,000 MG in 0.9 % SODIUM CHLORIDE 100 ML IV SCH ×4 (02:11→20:07)
[2022-06-05] MEDS: MoRPHine SULFATE 4 MG/ML 1 ML CARP\\VIAL IV PRN (04:15)
[2022-06-05 06:34] LABS: Basophils # (auto) 0.02 K/uL (0-0.2); Basophils % (auto) 0.9 %; Eosinophils # (auto) 0.03 K/uL (0-0.50); Eosinophils % (auto) 1.3 %; Hematocrit (blood only) 32.6 % (37.0-47.0); Hemoglobin 10.8 g/dl (12.0-16.0); Immature Granulocytes # (auto) 0.01 K/uL (0.01-0.20); Immature Granulocytes % (auto) 0.4 %; Lymphocytes % (auto) 17.4 %; Mean Corpuscular Hemoglobin 36.7 pg (25.0-34.0); Mean Corpuscular Hgb Conc 33.1 g/dL (32.0-36.0); Mean Corpuscular Volume 110.9 fL (80.0-100.0); Mean Platelet Volume 8.4 fL (9.4-12.4); Monocytes # (auto) 0.19 K/uL (0.11-0.59); Monocytes % (auto) 8.3 %; Neutrophils # (auto) 1.65 K/uL (1.40-6.50); Neutrophils % (auto) 71.7 %; Platelet Count 212 K/uL (130-400); RDW Coefficient of Variation 14.5 % (11.5-14.5); Red Blood Count 2.94 M/uL (4.20-5.40)
[2022-06-05 06:40] LABS: BUN Creatinine Ratio 16.5 (10-20); Calcium 9.1 mg/dl (8.5-10.1); Creatinine Clr Calc Pharmacy 87.5 ml/min; Est GFR (African American) 88.2 ml/min; Est GFR (Non-African American) 76.1 ml/min; Potassium 4.2 mmol/L (3.5-5.1)
[2022-06-05 06:48] LABS: INR 1.7 (0.9-1.1); Prothrombin Time 17.6 Seconds (9.0-12.0)
--- NOTE | 2022-06-05 07:20 | Oral/Maxillofacial Consult ---
Date of Consultation June 04, 2022 Assessment & Plan (1) Cellulitis of face: (2) Facial swelling: (3) Jaw pain: (4) Polycythemia vera: (5) Anticoagulant long-term use: History of Present Illness Attending Physician: Radha Amador MD History of Present Illness Oral Maxillofacial Surgery Exam The patient is a 56-year-old female who has had around 2 days of left lower jaw pain and facial swelling. She has taken 3 doses so far of amoxicillin prescribed by her doctors office. She states that the pain and swelling has increased. She has had some low-grade fevers. She still can swallow and has not noticed any shortness of breath. There has been no vomiting or diarrhea. No recent respiratory complaints. She has a history of some issues with her teeth but has never had anything like this happen before. She has a bridge on the left side. 56-year-old lady with PMH of polycythemia vera on hydroxyurea, DVT on warfarin, HTN, GERD, adjustment disorder presented to the ED 06/03 with left facial swelling and pain that she reports started abruptly 1 day ago morning [employer] associated with severe pain and mild fever at home. Patient reports taking Augmentin 1 day along with chlorhexidine rinses with no improvement and hence presented to the ED 06/03. She is being managed for the following: Cellulitis of the face: As noted on clinical exam and soft tissue of neck CT at presentation. Does not appear septic at presentation. OMFS consult placed, appreciate recs. Pain Mx, zosyn to unasyn; mrsa neg so dc vanc. NPO midnight for OMFS eval in AM. PT/INR in AM. Other chronic history including polycythemia vera and DVT/essential hypertension --resume home meds as able. Warfarin on hold. Present Complaint: I have pain/swelling/drainage from my infected teeth lower left area involving teeth 18-20 Failing bridge --present for years Has not been to a dentist since 2013 Symptoms have been ongoing for a while- now much worse Oral Exam: Finding--Acute facial and oral swelling left lower,associated with the following teeth 18-20, very swollen and tender gingival tissue with deep pocket formation.Teeth are in an carious and removal is clinical indicated. Imaging: CT soft tissue neck w con CLINICAL HISTORY: poss facial abscess Findings: Soft tissue swelling and skin thickening are seen about the left ventricle and mandibular regions. No drainable fluid collection is seen. There is thickening of the platysma which is likely reactive. The oropharynx, hypopharynx, larynx, and trachea are patent. Subcentimeter left submandibular nodes measuring up to 7 mm in short axis are likely reactive. The parotid glands, submandibular glands, and thyroid gland are unremarkable. Imaged portions of the brain parenchyma are unremarkable. Prominent soft tissue thickening of the maxillary sinuses noted. Impression: Findings are compatible with cellulitis of the left mandibular and apical soft tissues with thickening of the platysma and reactive lymph nodes. No drainable fluid collection or osteomyelitis is seen. Soft tissue: floor of the mouth, tongue, hard/soft palate, posterior pharyngeal area all with in normal limits, no pathology or abnormal findings noted. Acute facial(submandibular ) swelling noted, cheek and oral mucosa. Oral Care: Overall oral care is good Occlusion: Class I TMJ exam: No pop, clicking, pain, good ROM, No history of TMJ injury or dysfunction Periodontal exam: Healthy gingival tissue without evidence of periodontal pathology except lower let side from current infection Head/Neck exam: Neck is supple, FROM, Able to extend and flex neck with some difficulty due to current infection.no masses, no abnormalities, no airway issues. Treatment Plan: Will need the removal of the carious and abscessed teeth #18 and 20 with the failing bridge. I&D submandibular space. The quality of the oral tissues are very poor secondary to pressure necrosis of the swollen tissues pressing against the teeth. Given that Mrs. Perez is on warfarin and her INR is high we will need to insure that we can bring this down to at least 1.5 to 1.3 to allow surgery given such poor tissue quality. Hopefully this can be set up for June 05 or June 06 in the OR Set up with general anesthesia in hospital due to complexity of the procedure once INR is in a surgical acceptable range. I reviewed the treatment plan and consent with the patient Understanding was expressed. Time was given for questions regarding the surgery, risks and post op care. Discussed alternative to treatment--procedure as planned, Do not do surgery. I reviewed that trying to save the teeth especially # 18 which is a failing root canal would not be her best option. The following teeth are decayed and fractured and removal is indicated KARLA:18 and 20 with I&D Risks discussed: Bleeding,Pain,swelling,infection, dry socket, delayed healing, nerve injury to face,lips,tongue,chin area which could be permanent (rare). TMJ, jaw stiffness, change in bite (rare), ear pain (referred). Sinus problems like fistula or infection. Need to leave a small root fragment in place to avoid injury to nerve or sinus. Relationship of wisdom teeth to nerve/sinus and risk of jaw fracture. Home care reviewed: tooth brushing, rinsing, follow up care with Dr Hernández. diet=[id number] dental. Discussed activity level, driving/work while on Rx pain Meds. Surgery to be set up once the IRN is lowered to an acceptable surgical range Allergies Allergy/AdvReac Type Severity Reaction Status Date / Time Sulfa (Sulfonamide Allergy Intermediate rash Verified 11/23/10 08:42 Antibiotics) Home Medications Medication Instructions Recorded Confirmed Type albuterol sulfate 90 mcg/actuation 2 puff inhalation Q6H PRN 06/03/22 06/03/22 History aerosol inhaler Shortness Of Breath Or Wheezing amlodipine 2.5 mg tablet 2.5 mg PO QPM 06/03/22 06/03/22 History amoxicillin 875 mg tablet 875 mg PO BID 06/03/22 06/03/22 History aspirin 81 mg tablet,delayed 81 mg PO DAILY 06/03/22 06/03/22 History release chlorhexidine gluconate 0.12 % 15 ml PO BID 06/03/22 06/03/22 History mouthwash hydroxyurea 500 mg capsule 1,000 mg PO Q OTHER DAY 06/03/22 06/03/22 History hydroxyurea 500 mg capsule 1,500 mg PO Q OTHER DAY 06/03/22 06/03/22 History metoprolol succinate 25 mg 12.5 mg PO QPM 06/03/22 06/03/22 History tablet,extended release 24 hr oxybutynin chloride 10 mg 10 mg PO QPM 06/03/22 06/03/22 History tablet,extended release 24 hr pantoprazole 40 mg tablet,delayed 40 mg PO QPM 06/03/22 06/03/22 History release sertraline 100 mg tablet 100 mg PO QPM 06/03/22 06/03/22 History sertraline 50 mg tablet 50 mg PO QPM 06/03/22 06/03/22 History sumatriptan succinate 100 mg tablet 100 mg PO UD PRN Migraine Headache 06/03/22 06/03/22 History trazodone 50 mg tablet 25 mg PO HS 06/03/22 06/03/22 History warfarin 5 mg tablet See Rx Instructions .Route .COMPLEX 06/03/22 06/03/22 History Patient History Medical History Deep vein thrombosis, lower left extremity Essential hypertension Essential thrombocythemia GERD (gastroesophageal reflux disease) Migraine Palpitations PVCs on Zio - improved with beta raman Panic attacks Polycythemia vera Recurrent major depression Subclavian artery thrombosis s/p surgical intervention Surgical History History of arthroscopy of left knee History of breast biopsy History of hernia repair History of hysterectomy Family History Son Lymphoma Social History Smoking Status: Never smoker Second Hand Exposure: No; Do You Dip or Chew Tobacco: No; Tobacco Cessation Education Requested by Patient: No Hx Alcohol Use: Yes Alcohol type: beer Hx Substance Use: No Preferred Language: Telugu Communication Ability: Effective 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 Beliefs That Will Affect Care: None Current Living Situation: Spouse Other Information That Helps Us Care for You: No Feels Safe at Home: Yes Safety Concerns: Feels Safe At This Time Assistive Devices: Glasses Results & Data ([facility]) Vital Signs (Past 12 Hours) Vital Signs Temp Pulse Resp BP Pulse Ox O2 Del Method 06/05/22 06:26 36.7 C 71 20 123/78 95 Room Air 06/04/22 20:00 Room Air 06/04/22 21:12 36.5 C 80 16 106/63 94 Room Air PG Care Time/CCT Total # of Minutes Spent Total Time Spent with Patient: Total time spent is greater than 50% in coordination of care (as documented) at patient's floor/unit and/or counseling patient: Coding Level of Care Code 89468 IN/OBS CONSULT LVL 3,45M Diagnoses Cellulitis of face L03.211 Facial swelling R22.0 Jaw pain R68.84 Polycythemia vera D45 Anticoagulant long-term use Z79.01
[2022-06-05] MEDS ORDERED: MoRPHine SULFATE 4 MG/ML 1 ML CARP\\VIAL IV PRN (07:29)
[2022-06-05] MEDS ORDERED: PHYTONADIONE 5 MG TAB PO STA (07:36)
[2022-06-05] MEDS: SACCHAROMYCES BOULARDII 250 MG CAP PO SCH (07:50)
[2022-06-05] MEDS: oxyCODONE HCL IR 5 MG TAB (IMMEDIATE RELEASE) PO PRN ×3 (07:50→21:21)
--- NOTE | 2022-06-05 11:56 | Hospitalist Progress Note ---
Date of Service June 05, 2022 Assessment & Plan (1) Cellulitis of face: Plan: 56 y/o female with a PMH of polycythemia vera, recent DVT in Feb, now on warfarin, HTN, adjustment disorder, and GERD who presented to the ED with rapid worsening of left facial swelling and pain that started yesterday morning. Note from urgent care visit yesterday reviewed - pt started on amoxicillin 875 mg BID and chlorhexidine rinses. However, pt notes continued worsening even on antibiotics. She has not seen a dentist in over three years. Clinical picture seems most consistent with a left facial cellulitis due to underlying dental infection. Admit to med surg for further management Patient initially started on Zosyn, empiric Vanco added this morning due to patient concern for worsening in erythema extending to base of neck MRSA screen was negative, vancomycin DC'd De-escalate antibiotic to IV Unasyn per Dr. Hernández NPO, plan for OR today if INR 1.3-1.5 Vitamin K given this morning, oral 2.5mg, repeat INR at 1300 continue to hold warfarin post operatively will need to resume at discretion of Dr. Hernández Oxy IR added for pain control moderate, Severe pain with IV morphine Appreciate Dr. Hernández with oral maxillofacial surgery recommendations Pt dx with DVT LLE 03/18, known hx of PCV and Jak2 mutation, previous hx of arterial embolism following upper ext surgery in 2008 (2) Facial swelling: Plan: See plan for #1 (3) Polycythemia vera: Plan: Continue hydroxyurea per current outpatient dosing Plt stable wbc and h/h decreased likely dilutional effect monitor daily cbc off IVF (4) Deep vein thrombosis, lower left extremity: Plan: On warfarin - per outpatient heme notes, will likely be lifelong AC continue to hold warfarin Per Dr. Hernández goal INR ~ 1.5 Dr. Hernández now wants vit k, 2.5mg oral given this a.m. recommend resuming warfarin/bridging agent as soon as hemostasis is achieved at the discretion of Dr. Hernández (5) Essential hypertension: Plan: Currently normotensive Continue amlodipine (6) Adjustment disorder with mixed anxiety and depressed mood: Plan: Continue sertraline, trazodone (7) GERD (gastroesophageal reflux disease): Plan: Continue pantoprazole - currently well-controlled Plan FULL CODE PCP: Li Kramer Dispo: med/surg, NPO for possible oral maxillo facial procedure today, warfarin on holding, INR repeat ordered A total of 45 minutes was spent with greater than 50% of that time personally viewing all current laboratory work and diagnostic imaging studies obtained in the ED. Additionally, I was able to view the patients past medication reconciliation and history with direct visualization in the patients chart. Included in the time above, a portion of that time was spent assessing the patient while discussing and collaborating with specialists, if necessary, and making medical decision making on treatment plan. All of the above was collaborated with Dr. Amador. Please see addendum for further details. Admission and Anticipated Discharge Date Admission Date: June 03, 2022 Supervising Physician Co-Signing Physician Notes 56-year-old lady with PMH of polycythemia vera on hydroxyurea, DVT on warfarin, HTN, GERD, adjustment disorder presented to the ED 06/03 with left facial swelling and pain that she reports started abruptly 1 day ago morning [employer] WORK[employer] associated with severe pain and mild fever at home. Patient reports taking Augmentin 1 day along with chlorhexidine rinses with no improvement and hence presented to the ED 06/03. She is being managed for the following: Cellulitis of the face: As noted on clinical exam and soft tissue of neck CT at presentation. Does not appear septic at presentation. OMFS consult placed, for OT today. Pain Mx, c/w unasyn; mrsa neg. Bridge w/ resuming warfarin upon clearance from [facility] as able. Other chronic history including polycythemia vera and DVT/essential hypertension --resume home meds as able. Warfarin on hold. On examination: GENERAL: Alert and oriented x3. NAD, on RA. HEENT: No pallor, no icterus. Pupils equal, round and reactive to light. Oral mucosa moist. NECK: No JVD. Left submandibular LAD, Left cheek and submandibular swelling w/ erythema/tenderness. Erythematous and swollen oral mucosa noted. Yellow drainage x left buccal area - scant. Decreased mouth opening. All these findings in improving trend specifically swelling and erythema over sumandibular region has improved nicely. HEART: S1 and S2 heard. Regular rate and rhythm. No murmur, no gallop. RESPIRATORY SYSTEM: Normal AP diameter. No accessory muscle use. No wheezing, no crackles. ABDOMEN: Soft, bowel sounds present, nontender, no distention. CENTRAL NERVOUS SYSTEM: No facial droop. Speech is clear. Obeys simple commands. Moves extremities. EXTREMITIES: No edema, no erythema seen. I have seen and examined the patient and have discussed the case with the provider above. I agree with the assessment and plan as stated. Subjective This is a 56-year-old female being followed for left-sided facial cellulitis. Seen and evaluated in room 302. Patient feels swelling and redness has resolved but continues to have significant amount of pain. Feels morphine is not lasting long enough and requesting additional narcotic. She denies fever, chills, sweats, lightheadedness, dizziness, chest pain, shortness breath, nausea, vomiting, abdominal pain. She does complain of pain with swallowing but was able to tolerate diet yesterday. Plan is to go to the OR today if INR is between 1.3 and 1.5. Review of Systems Review of Systems: All systems reviewed & are unremarkable except as noted in HPI & below Physical Exam Physical Exam: Gen: WD/WN, NAD, A&O x3 HEENT: Normocephalic, atraumatic, conjunctivae moist, sclerae anicteric, mucous membranes moist. + Left-sided facial edema, erythema extending to base of neck, pain to palpation, left-sided oral mucosal bulla noted Lung: Clear to Auscultation bilaterally, no wheezes/rales/rhonchi Heart: Regular rate, regular rhythm, no murmurs, rubs, or gallops Abdomen: Soft, NT, ND +BS x 4 Extremities: No edema Skin: Warm, no rash, negative turgor. Results & Data Results & Data ([facility]) Vital Signs (Past 12 Hours) Vital Signs Temp Pulse Resp BP Pulse Ox O2 Del Method 06/05/22 07:07 36.9 C 68 18 105/70 94 Room Air 06/05/22 06:26 36.7 C 71 20 123/78 95 Room Air
[2022-06-05 13:52] LABS: INR 1.5 (0.9-1.1); Prothrombin Time 16.1 Seconds (9.0-12.0)
[2022-06-05] MEDS ORDERED: CHLORHEXIDINE GLUCONATE 0.12% 480 ML MT ONE (14:27)
[2022-06-05] MEDS ORDERED: BUPIVACAINE/EPINEPHRINE 0.5% 1:200,000 1.8 ML CARP ONE (14:27)
[2022-06-05] MEDS ORDERED: MIDAZOLAM HCL 1 MG/ML 2ML VIAL ONE (14:40)
[2022-06-05] MEDS ORDERED: SUCCINYLCHOLINE CHLORIDE 20 MG/ML 10 ML VIAL IV ONE (14:40)
[2022-06-05] MEDS ORDERED: ONDANSETRON INJ 2 MG/ML 2 ML VIAL ONE (14:40)
[2022-06-05] MEDS ORDERED: PROPOFOL IV EMULSION 10 MG/ML 20 ML VIAL IV ONE ×2 (14:40→16:37)
[2022-06-05] MEDS ORDERED: LIDOCAINE 2% MPF LOCAL 5 ML VIAL INFIL ONE (14:40)
[2022-06-05] MEDS ORDERED: ROCURONIUM BROMIDE 10 MG/ML 5 ML VIAL IV ONE (14:40)
[2022-06-05] MEDS ORDERED: fentaNYL citrate 100 MCG/2 ML VIAL ONE (14:40)
[2022-06-05] MEDS ORDERED: fentaNYL citrate 100 MCG/2 ML VIAL IV PRN (15:34)
[2022-06-05] MEDS ORDERED: HYDROmorphone INJ 2 MG/ML SYR/VIAL IV PRN (15:34)
[2022-06-05] MEDS ORDERED: ONDANSETRON INJ 2 MG/ML 2 ML VIAL IV PRN (15:34)
[2022-06-05] MEDS ORDERED: ATROPINE SULFATE 0.1 MG/ML 10ML SYR IV PRN (15:34)
[2022-06-05] MEDS ORDERED: ePHEDrine sulfate 50 MG/ML AMP IV PRN (15:34)
--- NOTE | 2022-06-05 15:47 | History & Physical Bridge Note ---
Date of Service June 05, 2022 History & Physical Bridge Note I have examined the patient, reviewed the History & Physical and in the interval since the performance of the History & Physical I have noted the following changes of clinical significance: no changes noted. INR is now at 1.5 swelling down in face Will plan intraoral I&D with extractions 18,20. ? external I&D
[2022-06-05] MEDS ORDERED: SUGAMMADEX SODIUM 200 MG/2 ML VIAL IV ONE (16:23)
--- NOTE | 2022-06-05 17:06 | Operative Report ---
PG Post Operative Report Pre & Post Diagnosis Operation Date: 06/05/22 07:50 Pre-Op Diagnosis: Facial Abscess, crm business analyst space abscess, vestbibular space abscess. Post-Op Diagnosis: Facial Abscess I identified the patient and participated in the time-out.: Yes Procedure Operation Date: 06/05/22 07:50 Actual Procedures p Left Submandibular / crm business analyst space abscess Incision and Drainage(Left) - Denys Hernández DMD s Extraction of#18 and #20(Not Applicable) - Denys Hernández DMD Surgeon Denys Hernández DMD Collections Agent none Estimated Blood Loss 5 Findings Consistent with Post-Op Diagnosis gross swelling with swollen tissue oral and submandibular abscess Specimens none Drains none Anesthesia Type General Complications none Indications acute infection and facial abscess left face Description of Procedure Actual Procedures M27.2 K12.2 Z79.01 [id number] D7210 for tooth 18 and 20 p Incision and Drainage Submandibular/ crm business analyst and vestibular space Abscess; Removal of Tooth #18,20 (Not Applicable) - Denys Hernández DMD Once cleared for surgery general anesthesia and the INR was regulated she was brought to the OR, the eyes were protected by the anesthesia dept criteria. A time out was take for patient ID, antibiotics, equipment and position verification once all agreed the procedure began. Local anesthesia using Marcaine with a vasoconstrictor ( 1.8 ml per site) given into left inferior alveolar nerve A throat pack was placed after the oral cavity was irrigated with saline. Once a surgical level of anesthesia was obtained and the local anesthesia was given time for the blocks the surgery was started. I turned my attention to the infection which was located in the submandibular, crm business analyst and subperiosteal space abscess. In addition there was also swelling associated with tooth #18 and 19 grossly infected gingival tissue draining pus CODING M27.2 K12.2 Z79.01 [id number] D7210 for tooth 18 and 20 Incision and Drainage of submandibular and masticatory spaces [id number] and [id number] Using a 15 blade an incision was made around the swollen gingival tissue from tooth # 21 posterior to the crm business analyst space area. Once the incision was made a lot of pus extruded from the site. A curved hemostat was carefully placed into the infected space along the lateral side of the lower jaw and into the submental space and submandibular space abscess. I then opened up the masticatory space abscess which was the cause of the trismus. Some further drainage was now allowed to escape. I palpated the chin, cheek,floor of the mouth and submental area and no further drainage was expressed. The area was irrigated with at least 100 ml of NS solution. I now turned my attention to remove the # 18 and 20 Lower # 18 and 20 D7210 x 2 The full thick Muco-periosteal flap which I used for the I and D was reflected to expose the facial aspect of # 18 and # 20. The flap was reflected to expose the the subperiosteal space the bone adjacent to the 18-20 area. The rongeur was used to remove bone, the tooth was removed with a 301 elevator, the mental nerve was intact, there was a large amount of granulation tissue on the apex and some more pus that was expressed. I inspected the sites to insure all bleeding was controlled. I removed the throat pack and suctioned the throat. A gauze pressure dressings was placed. All instrument and sponge count was correct. the patient was allowed to awake from the anesthesia. Once full awake the anesthesia tube was removed and the patient was taken to the recovery room with all vital sign stable. The patient tolerated the surgery very well. I will follow the patient in my office, Rx and instructions will be given upon discharge. I attest to the content of the Intraoperative Record and any orders documented therein. Any exceptions are noted below.
--- NOTE | 2022-06-05 17:27 | Anesthesiology Progress Note ---
Date of Service June 05, 2022 Anesthesia Post Procedure Vital Signs Vital Signs: Temp Pulse Pulse Resp BP Pulse Ox O2 Del Method 06/05/22 17:16 37.8 C H 80 14 172/97 H 95 Room Air 06/05/22 17:10 37.8 C H 78 12 172/95 H 96 Room Air 06/05/22 17:01 37.8 C H 95 H 15 161/96 H 95 Room Air 06/05/22 16:51 37.8 C H 96 H 15 156/93 H 97 Oxymask 06/05/22 15:11 36.5 C 70 18 129/74 97 Room Air 06/05/22 07:07 36.9 C 68 18 105/70 94 Room Air 06/05/22 06:26 36.7 C 71 20 123/78 95 Room Air 06/04/22 20:00 Room Air 06/04/22 21:12 36.5 C 80 16 106/63 94 Room Air O2 Flow Rate 06/05/22 17:16 06/05/22 17:10 06/05/22 17:01 06/05/22 16:51 6 06/05/22 15:11 06/05/22 07:07 06/05/22 06:26 06/04/22 20:00 06/04/22 21:12 Pain Intensity Left Jaw: Pain Intensity: 4 Transfer of Care Handoff Completed per policy Notes Mental Status: alert / awake / arousable and participated in evaluation Patient Amnestic to Procedure: Yes Nausea / Vomiting: adequately controlled Pain: adequately controlled Airway Patency, RR, SpO2: stable & adequate BP & HR: stable & adequate Hydration State: stable & adequate Anesthetic Complications: no major complications apparent and Pt Satisfied with anesthetic care
[2022-06-05] MEDS ORDERED: hydrALAZINE HCL 25 MG TAB PO PRN (18:06)
[2022-06-05] MEDS: HYDROXYUREA 500 MG CAP PO SCH (20:14)
[2022-06-05] MEDS: amLODIPine BESYLATE 5 MG TAB PO SCH (21:22)
[2022-06-05] MEDS: DOCUSATE SODIUM/SENNA 50/8.6MG TAB PO SCH (21:22)
[2022-06-05] MEDS: METOPROLOL SUCC 25MG EXT REL TAB PO SCH (21:23)
[2022-06-05] MEDS: OXYBUTYNIN CHLORIDE XL 5 MG TABCR PO SCH (21:23)
[2022-06-05] MEDS: traZODone HCL 50 MG TAB PO SCH (21:24)
[2022-06-05] MEDS: PANTOprazole 40 MG TAB PO SCH (21:24)
[2022-06-05] MEDS: SERTRALINE HCL 50 MG TABLET PO SCH (21:24)
[2022-06-05] MEDS: SERTRALINE HCL 100 MG TABLET PO SCH (21:24)
[2022-06-06] MEDS ORDERED: HYDROmorphone INJ 0.5 MG/0.5 ML SYR IV STA (00:25)
[2022-06-06] MEDS ORDERED: HYDROmorphone INJ 0.5 MG/0.5 ML SYR ONE (00:28)
[2022-06-06] MEDS: AMPICILLIN/SULBACTAM SOD 3,000 MG in 0.9 % SODIUM CHLORIDE 100 ML IV SCH ×4 (01:06→20:14)
[2022-06-06] MEDS: oxyCODONE HCL IR 5 MG TAB (IMMEDIATE RELEASE) PO PRN ×4 (01:06→20:14)
[2022-06-06 06:40] LABS: Basophils # (auto) 0.01 K/uL (0-0.2); Basophils % (auto) 0.5 %; Eosinophils # (auto) 0.04 K/uL (0-0.50); Eosinophils % (auto) 1.9 %; Hematocrit (blood only) 34.2 % (37.0-47.0); Hemoglobin 11.6 g/dl (12.0-16.0); Immature Granulocytes # (auto) 0.01 K/uL (0.01-0.20); Immature Granulocytes % (auto) 0.5 %; Lymphocytes # (auto) 0.36 K/uL (1.2-3.4); Lymphocytes % (auto) 17.2 %; Mean Corpuscular Hemoglobin 37.5 pg (25.0-34.0); Mean Corpuscular Hgb Conc 33.9 g/dL (32.0-36.0); Mean Corpuscular Volume 110.7 fL (80.0-100.0); Mean Platelet Volume 9.1 fL (9.4-12.4); Monocytes # (auto) 0.21 K/uL (0.11-0.59); Neutrophils # (auto) 1.46 K/uL (1.40-6.50); Neutrophils % (auto) 69.9 %; Platelet Count 202 K/uL (130-400); RDW Coefficient of Variation 14.5 % (11.5-14.5); RDW Standard Deviation 58.6 fL (36.4-46.3); Red Blood Count 3.09 M/uL (4.20-5.40); White Blood Count 2.09 K/ul (4.8-10.8)
[2022-06-06 06:54] LABS: BUN Creatinine Ratio 9.6 (10-20); Creatinine Clr Calc Pharmacy 101.9 ml/min; Est GFR (Non-African American) 91.4 ml/min; Magnesium 2.1 mg/dl (1.7-2.4); Potassium 3.7 mmol/L (3.5-5.1)
[2022-06-06 07:11] LABS: INR 1.2 (0.9-1.1); Prothrombin Time 12.5 Seconds (9.0-12.0)
[2022-06-06] MEDS: SACCHAROMYCES BOULARDII 250 MG CAP PO SCH (08:24)
[2022-06-06] MEDS: DOCUSATE SODIUM/SENNA 50/8.6MG TAB PO SCH ×2 (08:25→20:20)
--- NOTE | 2022-06-06 14:24 | Hospitalist Progress Note ---
Date of Service June 06, 2022 Assessment & Plan (1) Cellulitis of face: Plan: 56 y/o female with a PMH of polycythemia vera, recent DVT in Feb, now on warfarin, HTN, adjustment disorder, and GERD who presented to the ED with rapid worsening of left facial swelling and pain that started yesterday morning. Note from urgent care visit yesterday reviewed - pt started on amoxicillin 875 mg BID and chlorhexidine rinses. However, pt notes continued worsening even on antibiotics. She has not seen a dentist in over three years. Clinical picture seems most consistent with a left facial cellulitis due to underlying dental infection. Admit to med surg for further management Patient initially started on Zosyn, empiric Vanco added this morning due to patient concern for worsening in erythema extending to base of neck MRSA screen was negative, vancomycin DC'd De-escalate antibiotic to IV Unasyn per Dr. Hernández POD#1 s/p left Submandibular Incision and Drainage and tooth extraction by Dr. Hernández Discussed case with Dr. Hernández - thai for discharge from surgical perspective. Continue to hold warfarin until tomorrow afternoon Oxy IR added for pain control moderate, Severe pain with IV morphine Continue bowel regimen (2) Facial swelling: Plan: See plan for #1 (3) Polycythemia vera: Plan: Continue hydroxyurea per current outpatient dosing wbc and h/h decreased likely dilutional effect - stable monitor daily cbc (4) Deep vein thrombosis, lower left extremity: Plan: H/o with DVT LLE 03/18, known hx of PCV and Jak2 mutation, previous hx of arterial embolism following upper ext surgery in 2008 On warfarin - per outpatient heme notes, will likely be lifelong AC Plan to resume warfarin tomorrow afternoon per Dr. Hernández (5) Essential hypertension: Plan: Currently normotensive Continue amlodipine (6) Adjustment disorder with mixed anxiety and depressed mood: Plan: Continue sertraline, trazodone (7) GERD (gastroesophageal reflux disease): Plan: Continue pantoprazole - currently well-controlled Plan FULL CODE PCP: Li Kramer Dispo: med/surg, NPO for possible oral maxillo facial procedure today, warfarin on holding, INR repeat ordered A total of 40 minutes was spent with greater than 50% of that time personally viewing all current laboratory work and diagnostic imaging studies obtained in the ED. Additionally, I was able to view the patients past medication reconciliation and history with direct visualization in the patients chart. Included in the time above, a portion of that time was spent assessing the patient while discussing and collaborating with specialists, if necessary, and making medical decision making on treatment plan. All of the above was collaborated with Dr. Amador. Please see addendum for further details. 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 Patient reports taking Augmentin 1 day along with chlorhexidine rinses with no improvement and hence presented to the ED 06/03. She is being managed for the following: Cellulitis of the face: As noted on clinical exam and soft tissue of neck CT at presentation. Does not appear septic at presentation. OMFS consult placed, s/p Left submandibular I and D, and extraction of #18 and #20 on 06/05. Pain Mx, c/w unasyn; mrsa neg. Bridge w/ resuming warfarin upon clearance from [facility]. Close f/u w/ coumadin clinic on DC. To PO Augmentin for 2 weeks jia. ADD probiotics. f/u w/ Dr hernández in a week of discharge. Other chronic history including polycythemia vera and DVT/essential hypertension --resume home meds as able. Warfarin on hold. On examination: GENERAL: Alert and oriented x3. NAD, on RA. HEENT: No pallor, no icterus. Pupils equal, round and reactive to light. Oral mucosa moist. NECK: No JVD. Left submandibular LAD, Left cheek and submandibular swelling w/ erythema/tenderness. Erythematous and swollen oral mucosa noted. Yellow drainage x left buccal area - scant. Decreased mouth opening. All these findings in improving trend, some swelling remaining, erythema has gone down nicely. HEART: S1 and S2 heard. Regular rate and rhythm. No murmur, no gallop. RESPIRATORY SYSTEM: Normal AP diameter. No accessory muscle use. No wheezing, no crackles. ABDOMEN: Soft, bowel sounds present, nontender, no distention. CENTRAL NERVOUS SYSTEM: No facial droop. Speech is clear. Obeys simple commands. Moves extremities. EXTREMITIES: No edema, no erythema seen. I have seen and examined the patient and have discussed the case with the provider above. I agree with the assessment and plan as stated. Subjective Seen in 302 in follow-up for for left-sided facial cellulitis. POD#1 s/p left Submandibular Incision and Drainage and tooth extraction by Dr. Hernández. Redness and swelling have improved overnight but still with pain this morning. Just received oxycodone. Tolerated clears without issue this morning. Denies any nose symptoms overnight. No difficulty swallowing. Denies any acute bleeding. Denies fever, chills, sweats, lightheadedness, dizziness, chest pain, shortness breath, nausea, vomiting, abdominal pain. No bowel movement since admission. Review of Systems Review of Systems: At least ten systems reviewed and negative except as noted in the HPI. Physical Exam Physical Exam: Gen: WD/WN, NAD, sitting up in bed, A&Ox3 HEENT: Normocephalic, atraumatic, conjunctivae moist, sclerae anicteric, mucous membranes moist Lung: Clear to Auscultation bilaterally, no wheezes/rales/rhonchi Heart: Regular rate, regular rhythm, no murmurs, rubs, or gallops Abdomen: Soft, NT, ND +BS x 4 Extremities: no edema Skin: Warm, no rash Results & Data Results & Data ([facility]) Vital Signs (Past 12 Hours) Vital Signs Temp Pulse Resp BP Pulse Ox O2 Del Method 06/06/22 08:20 Room Air 06/06/22 08:20 36.8 C 74 14 140/85 94 Room Air 06/06/22 05:20 36.8 C 65 16 136/76 95 Room Air Laboratory Results Short CBC 06/06/22 Range/Units 05:47 WBC 2.09 L (4.8-10.8) K/ul Hgb 11.6 L (12.0-16.0) g/dl Hct 34.2 L (37.0-47.0) % Plt Count 202 (130-400) K/uL BMP 06/06/22 05:47 Sodium 138 Potassium 3.7 Chloride 102 Carbon Dioxide 31 BUN 7 Creatinine 0.73 Glucose 98 Calcium 9.0 Diagnostic Findings Soft Tissue Neck CT 06/03/22 09:54 CT soft tissue neck w con CLINICAL HISTORY: poss facial abscess Technique: Axial CT images of the soft tissues of the neck were obtained following intravenous administration of 100 cc of Omnipaque 300. Automated dose lowering techniques and/or adjustment according to patient size were utilized for this exam. CT DOSE: 470.19 mGy.cm Comparison: None available at the time of this dictation. Findings: Soft tissue swelling and skin thickening are seen about the left ventricle and mandibular regions. No drainable fluid collection is seen. There is thickening of the platysma which is likely reactive. The oropharynx, hypopharynx, larynx, and trachea are patent. Subcentimeter left submandibular nodes measuring up to 7 mm in short axis are likely reactive. The parotid glands, submandibular glands, and thyroid gland are unremarkable. Imaged portions of the brain parenchyma are unremarkable. Prominent soft tissue thickening of the maxillary sinuses noted. Impression: Findings are compatible with cellulitis of the left mandibular and apical soft tissues with thickening of the platysma and reactive lymph nodes. No drainable fluid collection or osteomyelitis is seen. ACT 112: Negative or not required by law. Electronically signed by: Mckinley Vaughn M.D. 06/03/2022 12:00 PM
[2022-06-06] MEDS ORDERED: POLYETHYLENE (MIRALAX) 17 GM PACK PO PRN (14:28)
[2022-06-06] MEDS: HYDROXYUREA 500 MG CAP PO SCH (15:44)
[2022-06-06] MEDS ORDERED: WARFARIN SOD 5 MG TAB PO SCH (16:00)
--- NOTE | 2022-06-06 19:48 | Oral/Maxillofacial Progress Nt ---
Date of Service June 06, 2022 Post Op infection evaluation at 18 hours The infected area has responded very well. Swelling has improved and the tissue is softer. No bleeding, oral area looks great with swelling as expected. No drainage is noted. . Infection has responded very well to the antibiotics, exactions and the I and D. I requested that the patient continue with massage, heat and wound care. At this time Purnima is comfortable and is responded well to treatment. Discussed post op management regarding oral care and re starting the anticoagulation Friday evening. Hospital medicine and her PCP will manage this . I will see Purnima on June 21 at 4 pm . Assessment & Plan Admission and Anticipated Discharge Date Admission Date: June 03, 2022 Results & Data ([facility]) Vital Signs (Past 12 Hours) Vital Signs Temp Pulse Resp BP Pulse Ox O2 Del Method 06/06/22 16:50 37.1 C 74 18 110/77 94 Room Air 06/06/22 13:00 36.7 C 84 16 128/72 96 Room Air 06/06/22 08:20 Room Air 06/06/22 08:20 36.8 C 74 14 140/85 94 Room Air PG Care Time/CCT Total # of Minutes Spent Total Time Spent with Patient: Total time spent is greater than 50% in coordination of care (as documented) at patient's floor/unit and/or counseling patient: Coding Level of Care Code None Diagnoses
[2022-06-06] MEDS: amLODIPine BESYLATE 5 MG TAB PO SCH (20:19)
[2022-06-06] MEDS: SERTRALINE HCL 50 MG TABLET PO SCH (20:20)
[2022-06-06] MEDS: SERTRALINE HCL 100 MG TABLET PO SCH (20:20)
[2022-06-06] MEDS: traZODone HCL 50 MG TAB PO SCH (20:20)
[2022-06-06] MEDS: METOPROLOL SUCC 25MG EXT REL TAB PO SCH (20:21)
[2022-06-06] MEDS: OXYBUTYNIN CHLORIDE XL 5 MG TABCR PO SCH (20:21)
[2022-06-06] MEDS: PANTOprazole 40 MG TAB PO SCH (20:21)
[2022-06-07] MEDS: oxyCODONE HCL IR 5 MG TAB (IMMEDIATE RELEASE) PO PRN ×4 (01:10→15:01)
[2022-06-07] MEDS: AMPICILLIN/SULBACTAM SOD 3,000 MG in 0.9 % SODIUM CHLORIDE 100 ML IV SCH ×3 (01:13→13:04)
[2022-06-07 06:29] LABS: Hematocrit (blood only) 35.1 % (37.0-47.0); Hemoglobin 11.6 g/dl (12.0-16.0); Mean Corpuscular Hemoglobin 36.8 pg (25.0-34.0); Mean Corpuscular Volume 111.4 fL (80.0-100.0); Mean Platelet Volume 8.9 fL (9.4-12.4); Platelet Count 192 K/uL (130-400); RDW Coefficient of Variation 14.7 % (11.5-14.5); RDW Standard Deviation 60.3 fL (36.4-46.3); Red Blood Count 3.15 M/uL (4.20-5.40); White Blood Count 2.01 K/ul (4.8-10.8)
[2022-06-07 06:47] LABS: BUN Creatinine Ratio 12.8 (10-20); Calcium 9.5 mg/dl (8.5-10.1); Creatinine Clr Calc Pharmacy 86.5 ml/min; Est GFR (African American) 86.9 ml/min; Potassium 4.2 mmol/L (3.5-5.1)
[2022-06-07] MEDS: DOCUSATE SODIUM/SENNA 50/8.6MG TAB PO SCH (07:36)
[2022-06-07] MEDS: SACCHAROMYCES BOULARDII 250 MG CAP PO SCH (07:37)
--- NOTE | 2022-06-07 13:52 | Ultrasound Report ---
US soft tissue neck HISTORY: 56 years-old Female left neck base swelling , eval for collection acute pain and swelling o f the neck COMPARISON: CT soft tissue neck 06/03/2022 TECHNIQUE: Multiple real-time sonographic images of the soft tissues of the neck were obtained assess ing grayscale appearance and color flow FINDINGS: Subcentimeter left submandibular lymph nodes are likely reactive. No focal fluid collection or mass. IMPRESSION: Unremarkable exam. ACT 112: Negative or not required by law. The above report was generated using voice recognition software. It may contain grammatical, syntax o r spelling errors. Electronically signed by: Fab Bowden M.D. 06/07/2022 1:51 PM
--- NOTE | 2022-06-07 14:58 | Discharge Summary ---
Discharge Summary Date of Service June 07, 2022 Notes For Next Care Provider Left facial cellulitis due to underlying dental infection s/p left Submandibular Incision and Drainage and tooth extraction by Dr. Hernández on 06/06/22 Medication Changes From Visit Complete augmentin BID for 14d abx course, short course PRN oxy Admission HPI Per Admitting Provider This is a 56 y/o female with a PMH of polycythemia vera, recent LLE DVT, recent COVID infection, anxiety, depression, HTN, GERD, insomnia, and prior subclavian arterial embolism s/p embolectomy in 2008 who presented to the ED today with worsening facial swelling and pain. Pt reports two days ago being in her usual state of health. Yesterday, she woke up with a "golf ball sized" swelling in her left lower face/jaw with associated pain. Took Tylenol without relief. Seen by urgent care via telemedicine yesterday and diagnosed with dental infection, started on Amoxicillin 875 mg BID. She has taken three doses of the Amoxicillin but feels like symptoms are worsening, not improving. Notes increased pain and swelling with both now extending into her left neck and under her chin. Only partial relief with morphine. Has been using an ice pack which helps somewhat. Associated nausea but no vomiting or diarrhea. Area over the most swollen area feels numb and tingling. Low-grade fever yesterday (99.8F) with associated chills. Warm salt water and the chlorhexidine rinses prescribed yesterday also seem to provide some transient relief. She notes that she has not seen a dentist since before the pandemic. About three years ago broke a left lower molar/bridge but has not followed up. Denies any dental pain. No similar symptoms previously. She is currently on warfarin due to recent LLE DVT in Feb - follows with anticoagulation clinic. About 2-3 weeks ago, she had COVID and took a course of Paxlovid - feels like these symptoms have essentially resolved. Admission Exam Per Admitting Provider Constitutional: well developed and well nourished; no acute distress B Eyes: + anicteric sclerae ENMT: marked left lower mandibular erythema and edema with associated tenderness that extends under chin and the left neck and supraclavicular area Limited ability to open mouth due to pain but left lower gingival erythema and edema, scant drainage Neck: trachea midline shotty left submandibular LN - tender Respiratory: no respiratory distress and no labored breathing Auscultation: lungs clear to auscultation bilaterally; no rales, no rhonchi and no wheezes Cardiovascular: Rate/Rhythm: regular rate and regular rhythm Vessels: dorsalis pedis pulses present and radial pulses present Extremities: no pedal edema Gastrointestinal (Abdomen): Inspection/Auscultation: normal bowel sounds; abdomen not distended Percussion/Palpation: abdomen soft; abdomen nontender Musculoskeletal: Head/Neck/Chest: normocephalic and head atraumatic Skin: no jaundice Neurologic: moves all extremities; no focal motor deficits and not confused Psychiatric: A+Ox3, euthymic affect Principal Dx & Hospital Course #1 = Principal Diagnosis (1) Cellulitis of face: (2) Facial swelling: (3) Polycythemia vera: (4) Deep vein thrombosis, lower left extremity: (5) Essential hypertension: (6) Adjustment disorder with mixed anxiety and depressed mood: (7) GERD (gastroesophageal reflux disease): Plan This is a 56 y/o female with a PMH of polycythemia vera, recent LLE DVT, recent COVID infection, anxiety, depression, HTN, GERD, insomnia, and prior subclavian arterial embolism s/p embolectomy in 2008 who presented to the ED today with worsening facial swelling and pain and was found to have a left facial cellulitis due to underlying dental infection. Findings are compatible with cellulitis of the left mandibular and apical soft tissues with thickening of the platysma and reactive lymph nodes. No drainable fluid collection or osteomyelitis is seen. POD#1 s/p left Submandibular Incision and Drainage and tooth extraction by Dr. Hernández. Blood cultures remain negative. Facial swelling and pain improved today but still present. Repeat ultrasound of soft tissue of neck today with presence of reactive nodes post-op but no focal fluid collection or mass. Will continue antibiotic treatment for 14d total course and probiotics as well. Short course PRN oxycodone for severe pain and instructed to alternate with tylenol. Continue bowel regimen with miralax. Has follow up with Dr. Hernández scheduled. Okay to resume coumadin this evening per surgery and reviewed schedule with patient. Has appointment next week with coagulation clinic. Patient hemodynamically stable at time of discharge home. Discharge Exam Gen: WD/WN, NAD, sitting up in bed, A&Ox3 HEENT: Normocephalic, atraumatic, conjunctivae moist, sclerae anicteric, mucous membranes moist Lung: Clear to Auscultation bilaterally, no wheezes/rales/rhonchi Heart: Regular rate, regular rhythm, no murmurs, rubs, or gallops Abdomen: Soft, NT, ND +BS x 4 Extremities: no edema Skin: Warm, no rash Updated Medication List Medication Instructions Recorded Confirmed Type albuterol sulfate 90 mcg/actuation 2 puff inhalation Q6H PRN 06/03/22 06/03/22 History aerosol inhaler Shortness Of Breath Or Wheezing amlodipine 2.5 mg tablet 2.5 mg PO QPM 06/03/22 06/03/22 History aspirin 81 mg tablet,delayed 81 mg PO DAILY 06/03/22 06/03/22 History release chlorhexidine gluconate 0.12 % 15 ml PO BID 06/03/22 06/03/22 History mouthwash hydroxyurea 500 mg capsule 1,000 mg PO Q OTHER DAY 06/03/22 06/03/22 History hydroxyurea 500 mg capsule 1,500 mg PO Q OTHER DAY 06/03/22 06/03/22 History metoprolol succinate 25 mg 12.5 mg PO QPM 06/03/22 06/03/22 History tablet,extended release 24 hr oxybutynin chloride 10 mg 10 mg PO QPM 06/03/22 06/03/22 History tablet,extended release 24 hr pantoprazole 40 mg tablet,delayed 40 mg PO QPM 06/03/22 06/03/22 History release sertraline 100 mg tablet 100 mg PO QPM 06/03/22 06/03/22 History sertraline 50 mg tablet 50 mg PO QPM 06/03/22 06/03/22 History sumatriptan succinate 100 mg tablet 100 mg PO UD PRN Migraine Headache 06/03/22 06/03/22 History trazodone 50 mg tablet 25 mg PO HS 06/03/22 06/03/22 History warfarin 5 mg tablet See Rx Instructions .Route .COMPLEX 06/03/22 06/03/22 History amoxicillin 875 mg-potassium 1 tab PO BID #20 tabs 06/07/22 Rx clavulanate 125 mg tablet lactobacillus combination no.4 3 3,000 mmu cells PO DAILY #14 caps 06/07/22 Rx billion cell capsule (Probiotic) oxycodone 5 mg tablet 5 mg PO Q6H PRN severe pain #10 06/07/22 Rx tabs Hospital Stay Data Consultations 06/03/22 13:12 ED Decision to Admit Stat 06/03/22 14:46 Consult Oromaxillofacial Surgery Routine Procedures Performed Operation Date: 06/05/22 07:50 Actual Procedures p Left Submandibular Incision and Drainage(Left) - Denys Hernández DMD s Extraction of#18 and #20(Not Applicable) - Denys Hernández DMD Diagnostic Imagining Performed 06/03/22 09:54 CT soft tissue neck w con Stat 06/07/22 13:30 US soft tissue neck Urgent Pending Results Patient Have Any Pending Studies at Discharge: No Discharge Instructions Given to Patient (Per Discharging Provider) ADDITIONAL ACTIVITY RECOMMENDATIONS: YOUR POST OP IS JUNE 18 AT 4 PM -- I MAY HAVE INDICATED THAT IT WAS JUNE 21 AT 4 pm * Lyons teeth after every meal. It is very important to keep your mouth clean to prevent infection. * Starting tonight rinse with the Peridex as directed then 2 x a day * it is very important to keep well hydrated, this prevents fever and possible dry socket pain SPECIAL CARE INSTRUCTIONS: *It is not uncommon that between day 2-4 that your swelling will be at its worst this is very normal, do not be alarmed. * Keep ice on the side of your face for the next 24 to 36 hours. This will help keep the swelling down. * After 36 hours, apply heat (hot water bottle or heating pad) for the next two days, as often as possible. * Tomorrow start rinsing your mouth with 1/2 teaspoon salt in 8 ounces warm water. This rinse should be used every 4-6 hours. * You may experience slight nausea. To prevent this, never take your medication on an empty stomach. If nauseated, take small sips of rosie mendez until you feel better; then you may start on applesauce and toast. * Some swelling is common. It should gradually decrease within 4-5 days. * A certain amount of bleeding is to be expected. It is often possible to control mild oozing by placing folded gauze over the area and biting down for 30 minutes. If you are unable to control excessive bleeding, call Dr Hernández at [phone] * You may experience some discomfort for a few days. If pain or swelling increases, Call Dr Hernández * Return to the office for a follow up check up on: FridayJUNE 18 at 4 PM * office address--[address]. phone # [phone] Total Time Total Time Spent Total Time Spent (In Minutes): 60 Supervising Physician Co-Signing Physician Notes 56-year-old lady with PMH of polycythemia vera on hydroxyurea, DVT on warfarin, HTN, GERD, adjustment disorder presented to the ED 06/03 with left facial swelling and pain that she reports started abruptly 1 day ago morning [employer] associated with severe pain and mild fever at home. Patient reports taking Augmentin 1 day along with chlorhexidine rinses with no improvement and hence presented to the ED 06/03. She was managed for the following: Cellulitis of the face: As noted on clinical exam and soft tissue of neck CT at presentation. Does not appear septic at presentation. OMFS consult placed, s/p Left submandibular I and D, and extraction of #18 and #20 on 06/05. Pain Mx, c/w unasyn - to augmentin on DC; mrsa neg. Close f/u w/ coumadin clinic on DC. To PO Augmentin for 2 weeks jia. ADD probiotics. f/u w/ Dr hernández in a week of discharge. Other chronic history including polycythemia vera and DVT/essential hypertension --resume home meds as able. c/w warfarin. On examination: GENERAL: Alert and oriented x3. NAD, on RA. HEENT: No pallor, no icterus. Pupils equal, round and reactive to light. Oral mucosa moist. NECK: No JVD. Left submandibular LAD, Left cheek and submandibular swelling w/ erythema/tenderness. Erythematous and swollen oral mucosa noted. Yellow drainage x left buccal area - scant. Decreased mouth opening. All these findings in improving trend, some swelling remaining, erythema has gone down nicely. HEART: S1 and S2 heard. Regular rate and rhythm. No murmur, no gallop. RESPIRATORY SYSTEM: Normal AP diameter. No accessory muscle use. No wheezing, no crackles. ABDOMEN: Soft, bowel sounds present, nontender, no distention. CENTRAL NERVOUS SYSTEM: No facial droop. Speech is clear. Obeys simple commands. Moves extremities. EXTREMITIES: No edema, no erythema seen. I have seen and examined the patient and have discussed the case with the provider above. I agree with the assessment and plan as stated.
[2022-06-07] MEDS ORDERED: WARFARIN SOD 5 MG TAB PO SCH (16:00)
== END 2022-06-07 18:17 | disposition home or self-care (01) | DRG 158 ==
LOC: ED 09:28 → 3E 14:31